=== PATIENT | female | born 1965 | race Caucasian/White ===

== ENCOUNTER → 2022-11-01 12:59 | Outpatient (BNVA) | payer OTHER, MEDICAID, SELFPAY | PROVIDERS: PCP Internal Medicine; Visit Provider Internal Medicine | DX: Z13.89 Encounter for screening for other disorder (principal) ==

== ENCOUNTER 2022-12-08 11:27 | Day surgery (SDC) | payer MEDICARE, MEDICAID, SELFPAY ==
--- NOTE | ~2022-12-08 | FL_ITS ---
EXAMINATION: XR FLUOROSCOPY WITH IMAGES CLINICAL INFORMATION: RFA medial branch block. COMPARISON: None. TECHNIQUE: Fluoroscopy Supervised By: Dr. Edward Longoria. Fluoroscopy Time: 0.4 minutes. Cumulative Dose: 11.7 mGy. DAP: 1.5 Gy-cm2. Images: 4. FINDINGS: Images demonstrate lead placement adjacent to the left L3-L4 and L5 vertebral bodies. FL/FL guidance in OR IMPRESSION: Fluoroscopy guidance for pain management procedure.
[2022-12-08 11:43] VITALS: BMI 32.5
[2022-12-08 14:06] VITALS: BP 140/91; PULSE 85; RESP 20; TEMP 37.5; O2SAT 95
--- NOTE | 2022-12-09 11:12 | MHC.SHP ---
Pre-Procedural Eval Section A Date of Service: 12/08/22 The patient is an INPATIENT: No Changes since office visit: Yes Patient answered all questions The History & Physical has been completed within 30 days and I have reviewed it.: No Section B Chief Complaint: Spondylosis without myelopathy or radiculopathy Relevant Family History (Specify if Yes): No Relevant Social History: None Present Medications: see Short Stay Collaborative assessment Medical History: No relevant PMH History of Previous Operations: No relevant previous surgery Allergies: Allergies Allergy/AdvReac Type Severity Reaction Status Date / Time No Known Allergies Allergy Verified 11/01/22 13:04 [No Known Allergies*] Review of Systems Sugical H&P ROS: Negative: Constitution, Cardiovascular and Respiratory Exam Surgical H&P Exam: Normal: HEENT, Normal: Heart and Normal: Lungs Plan Diagnosis/Plan: Unchanged I have reviewed the history and physical and performed a pertinent physical examination on my patient. No changes have occurred unless specified. Time Spent With Patient Time: Total time managing care of this patient today ____ minutes.
--- NOTE | 2022-12-09 11:13 | PM.OP ---
Brief Operative Note Date of Service: 12/08/22 Pre-op diagnosis: Lumbar spondylosis Post-op diagnosis: same Procedure: Radiofrequency ablation of the left L3, L4 medial branches and L5 dorsal ramus Surgeon: Edward Longoria MD Anesthesia: local Was an Senior Information Security Engineer used for this Procedure?: No Estimated blood loss (mL): 1 Pathology: none sent Condition: stable Disposition: same day
--- NOTE | 2022-12-09 11:14 | W.PM.OPN ---
Operative Note Operative Note Date of Service: 12/08/22 Narrative: Radiofrequency lesioning medial branch nerves, Left L3, L4 medial branches and L5 dorsal ramus (L4/5 and L5/S1) (2 levels, 3 nerves) After obtaining written consent, pre-procedure blood pressure and heart rate were stable and recorded in the nursing record. The patient was placed in the prone position. The lumbar area was prepped with chloraprep and draped in sterile fashion. The skin over the target for each medial branch nerve was anesthetized with 0.5% lidocaine. An 18 gauge radiofrequency cannula was advanced to each target site under fluoroscopic guidance. No paresthesias were elicited with needle placement and aspiration was negative for heme and CSF. Impedences were verified under 600 ohms. Sensory testing (50 Hz) and then motor testing (2 Hz) confirmed needle placement at each site within the appropriate voltage thresholds. Each site was injected with 0.5 ml 2% preservative-free lidocaine. Radiofrequency lesioning was performed for 90 seconds at 80 deg Celcius. Each site was then injected with 0.5ml 0.5% ropivacaine. The needle was removed, skin cleansed and a sterile bandage was applied. The patient tolerated the procedure well and no complications were encountered. Following the procedure the patient's vital signs were stable. The patient was discharged home in good condition with post-procedural instructions. Time Out: Immediately prior to the procedure, the following was verbally confirmed that there is a signed consent form and that the correct patient, planned procedure, site and side are consistent with documentation and that necessary equipment and/or blood products are available prior to the start of the case. Complications: none EBL: <5 cc
== END 2022-12-08 14:17 | disposition home or self-care (01) ==
PROVIDERS: PCP Internal Medicine; Visit Provider Internal Medicine
PROC: (CPT 64635; principal; 2022-12-08 12:30)
DX: M47.816 Spondylosis without myelopathy or radiculopathy, lumbar region (principal); M54.50 Low back pain, unspecified; M25.562 Pain in left knee; I10 Essential (primary) hypertension; F41.8 Other specified anxiety disorders; E11.40 Type 2 diabetes mellitus with diabetic neuropathy, unspecified; R25.1 Tremor, unspecified; Z79.4 Long term (current) use of insulin; Z79.899 Other long term (current) drug therapy
CPT/HCPCS: 64635; 64636; J2795; J3301; Q9965

== ENCOUNTER → 2022-12-22 12:08 | Day surgery (SDC) | payer MEDICARE, MEDICAID, SELFPAY ==
--- NOTE | ~2022-12-22 | FL_ITS ---
EXAMINATION: XR FLUOROSCOPY WITH IMAGES CLINICAL INFORMATION: Back pain. Pain management procedure. COMPARISON: Fluoroscopic spot images 12/08/2022. TECHNIQUE: Fluoroscopy Supervised By: Dr. Edward Longoria. Fluoroscopy Time: 0.3. Cumulative Dose: 8.52 mGy. DAP: 0.937 Gycm2. Images: 2. FINDINGS: There are spinal needles or electrodes overlying the outer right L3, L4, and L5 neural foramen. FL/FL guidance in OR IMPRESSION: Fluoroscopy for pain management procedures.
[2022-12-22 09:33] VITALS: BMI 33.3
[2022-12-22 12:24] VITALS: BP 156/79; PULSE 99; RESP 18; TEMP 36.3; O2SAT 96
[2022-12-22 14:55] VITALS: BP 120/55; PULSE 54; RESP 18; TEMP 36.2; O2SAT 96
--- NOTE | 2022-12-22 16:46 | PM.OP ---
Brief Operative Note Date of Service: 12/22/22 Pre-op diagnosis: Lumbar spondylosis Post-op diagnosis: same Procedure: Right L3, L4 medial branches and L5 dorsal ramus radiofrequency ablation Implants: None Surgeon: Edward Longoria MD Anesthesia: local Was an Industrial Machinery Mechanic used for this Procedure?: No Estimated blood loss (mL): 1 Pathology: none sent Condition: stable Disposition: same day
--- NOTE | 2022-12-23 14:26 | P.OP_ITS ---
Operative Note Operative Note Date of Service: 12/22/22 Narrative: Radiofrequency lesioning medial branch nerves, Right L3, L4 medial branches and L5 dorsal ramus (L4/5 and L5/S1) (2 levels, 3 nerves) After obtaining written consent, pre-procedure blood pressure and heart rate were stable and recorded in the nursing record. The patient was placed in the prone position. The lumbar area was prepped with chloraprep and draped in sterile fashion. The skin over the target for each medial branch nerve was anesthetized with 0.5% lidocaine. An 18 gauge radiofrequency cannula was advanced to each target site under fluoroscopic guidance. No paresthesias were elicited with needle placement and aspiration was negative for heme and CSF. Impedences were verified under 600 ohms. Sensory testing (50 Hz) and then motor testing (2 Hz) confirmed needle placement at each site within the appropriate voltage thresholds. Each site was injected with 0.5 ml 2% preservative-free lidocaine. Radiofrequency lesioning was performed for 90 seconds at 80 deg Celcius. Each site was then injected with 0.5ml 2% lidocaine. The needle was removed, skin cleansed and a sterile bandage was applied. The patient tolerated the procedure well and no complications were encountered. Following the pro cedure the patient's vital signs were stable. The patient was discharged home in good condition with post-procedural instructions. Time Out: Immediately prior to the procedure, the following was verbally confirmed that there is a signed consent form and that the correct patient, planned procedure, site and side are consistent with documentation and that necessary equipment and/or blood products are available prior to the start of the case. Complications: none EBL: <1 cc
--- NOTE | 2022-12-23 14:26 | MHC.SHP ---
Pre-Procedural Eval Section A Date of Service: 12/22/22 The patient is an INPATIENT: No The History & Physical has been completed within 30 days and I have reviewed it.: No Section B Chief Complaint: Spondylosis without myelopathy or radiculopathy, Relevant Family History (Specify if Yes): No Relevant Social History: None Present Medications: see Short Stay Collaborative assessment Medical History: No relevant PMH History of Previous Operations: No relevant previous surgery Allergies: Allergies Allergy/AdvReac Type Severity Reaction Status Date / Time No Known Allergies Allergy Verified 11/01/22 13:04 [No Known Allergies*] Review of Systems Sugical H&P ROS: Negative: Constitution, Cardiovascular and Respiratory Exam Surgical H&P Exam: Normal: HEENT, Normal: Heart and Normal: Lungs Plan Diagnosis/Plan: Unchanged I have reviewed the history and physical and performed a pertinent physical examination on my patient. No changes have occurred unless specified. Time Spent With Patient Time: Total time managing care of this patient today ____ minutes.
== END | disposition home or self-care (01) ==
PROVIDERS: PCP Internal Medicine; Visit Provider Internal Medicine
PROC: (CPT 64635; principal; 2022-12-22 13:10)
DX: M47.816 Spondylosis without myelopathy or radiculopathy, lumbar region (principal); I10 Essential (primary) hypertension; E11.9 Type 2 diabetes mellitus without complications; E78.5 Hyperlipidemia, unspecified; K21.9 Gastro-esophageal reflux disease without esophagitis; R25.1 Tremor, unspecified; G47.00 Insomnia, unspecified; Z79.4 Long term (current) use of insulin; Z79.899 Other long term (current) drug therapy; Z87.891 Personal history of nicotine dependence
CPT/HCPCS: 64635; 64636; J2795; J3301

== ENCOUNTER 2023-01-14 09:42 | Outpatient (REF) | payer MEDICARE, MEDICAID, SELFPAY ==
--- NOTE | ~2023-01-14 | XR_ITS ---
EXAMINATION: XR KNEE AP STANDING CLINICAL INFORMATION: Pain COMPARISON: None available. TECHNIQUE: AP bilateral standing view of the knees was obtained. XR/XR knee standing BI FINDINGS/IMPRESSION: No acute abnormality on this single AP view.
== END 2023-01-14 09:43 | disposition home or self-care (01) ==
LOC: HO.XRAY 09:42
PROVIDERS: PCP Internal Medicine; Visit Provider Internal Medicine
DX: M25.561 Pain in right knee (principal); M25.562 Pain in left knee
CPT/HCPCS: 73565; 99212

== ENCOUNTER 2024-05-28 09:19 | Outpatient (AMB) | payer MEDICARE, MEDICAID, SELFPAY ==
--- NOTE | 2024-05-28 09:22 | MHC.OFFVIS ---
Vital Signs 05/28/24 09:24 Height 5 ft 2 in Weight 183 lb BMI 33.5 BP 130/70 Blood Pressure Location Lt brachial Position Sitting Respiration 14 Pulse 110 H Pulse Source Pulse Oximeter Pulse Oximetry (%) 96 Oxygen Delivery Method Room Air Intake Visit Reasons: Low Back Pain Allergies No Known Allergies [No Known Allergies*] Allergy (Verified 05/28/24 09:26) Medication List - Last Reconciled 05/28/24 by May Mar LPN atorvastatin 20 mg PO DAILY celecoxib 200 mg PO BID dicyclomine 10 mg PO Q6H dulaglutide (Trulicity) mg subcut famotidine 20 mg PO BID insulin glargine (Lantus Solostar U-100 Insulin) 32 - 40 units subcut DAILY insulin lispro (Humalog KwikPen (U-100) Insulin) 2 - 10 units subcut TID omeprazole 40 mg PO DAILY prazosin 2 mg PO BEDTIME prazosin 1 mg PO BID quetiapine 25 - 50 mg PO BID PRN quetiapine 300 mg PO BEDTIME sertraline 150 mg PO DAILY terbinafine HCl 250 mg PO DAILY zolpidem 5 mg PO BEDTIME HPI HPI Low Back Pain: Details: 59-year-old female who presents today to the office for low back pain. She states that her pain was stable till May 07, 2024. She woke up with some soreness in her left side, and the next day the pain was excruciating in nature. She was seen in the ER on Tuesday and was started on steroid, oxycodone, and Tylenol 1000 mg a day. She has difficulty sleeping at night. She reports a numbing sensation with prolonged walking. She has not done an MRI scan in the past. Previous procedure elsewhere: ? She underwent successful lumbar medial branch RFAs for her low back pain in [facility] by Dr. Carlos Washington prior to moving here. She did these twice a year with great effect and long-lasting relief (>50% for >12 weeks). Past procedures: 12/24/23: Radiofrequency lesioning medial branch nerves, Right L3, L4 medial branches and L5 dorsal ramus (L4/5 and L5/S1) (2 levels, 3 nerves): More than 80% relief till April 2024. 12/09/23: Radiofrequency lesioning medial branch nerves, Left L3, L4 medial branches and L5 dorsal ramus (L4/5 and L5/S1) (2 levels, 3 nerves): More than 80% relief till April 2024. [facility] Medical History (Updated 06/01/24 @ 09:09 by Edward Longoria MD) Neuropathy of both feet Tremor GERD (gastroesophageal reflux disease) Hiatal hernia Insomnia Anxiety and depression Hyperlipidemia Hypertension Malignant neoplasm of ovary DM2 (diabetes mellitus, type 2) Surgical History (Updated 11/01/22 @ 13:15 by James Brambila) H/O bilateral salpingo-oophorectomy Social History Patient Tobacco Use Status: Former Tobacco user Review of Systems Const All systems reviewed & are unremarkable except as noted in HPI and below Physical Exam Vital Signs: Last Vital Signs Pulse 110 H 05/28/24 09:24 Resp 14 05/28/24 09:24 BP 130/70 05/28/24 09:24 Pulse Ox 96 05/28/24 09:24 Oxygen Delivery Method Room Air 05/28/24 09:24 BMI result Body Mass Index 33.5 General: Appears afebrile. Alert and oriented. Mood and affect appropriate. Follows and participates in conversation appropriately. Respiratory effort is unlabored. Able to transition from sit to stand unassisted. Ambulates with bilaterally normal heel strike and toe off. Results Reviewed Results Reviewed: No imaging is available for review. Assessment & Plan Assessment & Plan (1) Lumbar spondylosis: Code(s): M47.816 - Spondylosis without myelopathy or radiculopathy, lumbar region Category: Medical (2) Sacroiliac joint dysfunction: Code(s): M53.3 - Sacrococcygeal disorders, not elsewhere classified Category: Medical Plan Her RFA provided more than 80% relief for 15 months, but her pain at this time is more towards the left side. It is sharp in nature and aggravated by SI joint provocation. So, we will proceed with the diagnostic SI joint injection first. If that is negative, then we will consider repeating the lumbar RFA. We will schedule her for a left diagnostic sacroiliac joint injection. Discussed the risks and benefits of the procedure with the patient in detail. All questions were answered. The patient is on board with the plan. Justification for interventional therapy: ? Patient with average pain > 6/10 ? Patient has exhausted conservative therapy ? Patient unable to tolerate physical therapy due to pain. . Patient has a good understanding of their pain condition and has appropriate mental and social support Scribed for Dr. Longoria by Mike Medina, medical unit secretary, on 05/28/2024. I, Dr. Longoria, have personally reviewed and agree with the information entered by the scribe. Coding Level of Care Code Est Pt Level 3 (37761) Diagnoses Lumbar spondylosis M47.816 Sacroiliac joint dysfunction M53.3
[2024-05-28 09:24] VITALS: BP 130/70; PULSE 110; RESP 14; O2SAT 96; BMI 33.5
== END 2024-05-28 09:59 | disposition home or self-care (01) ==
LOC: HO.PMC 09:19
PROVIDERS: PCP Internal Medicine; Referring Provider Internal Medicine; Visit Provider Internal Medicine
DX: M47.816 Spondylosis without myelopathy or radiculopathy, lumbar region (principal); M53.3 Sacrococcygeal disorders, not elsewhere classified
CPT/HCPCS: 99213

== ENCOUNTER → 2024-05-28 09:19 | Outpatient (BNVA) | payer MEDICARE, MEDICAID, SELFPAY | PROVIDERS: PCP Internal Medicine; Referring Provider Internal Medicine; Visit Provider Internal Medicine | DX: M47.816 Spondylosis without myelopathy or radiculopathy, lumbar region (principal); M53.3 Sacrococcygeal disorders, not elsewhere classified | CPT/HCPCS: 99212 ==

== ENCOUNTER 2024-07-19 06:07 | Outpatient (REF) | payer MEDICARE, MEDICAID, SELFPAY | END 2024-07-19 06:08 | disposition home or self-care (01) | LOC: CF 06:07 | PROVIDERS: Visit Provider Internal Medicine | DX: M53.3 Sacrococcygeal disorders, not elsewhere classified (principal) | CPT/HCPCS: 27096; J2795 ==

== ENCOUNTER 2024-07-19 10:02 | Outpatient (AMB) | payer MEDICARE, MEDICAID, SELFPAY ==
[2024-07-19 10:29] VITALS: BP 143/81; PULSE 103; RESP 17; O2SAT 96
--- NOTE | 2024-07-19 11:23 | A.OFFVIS_ITS ---
Vital Signs 07/19/24 10:29 07/19/24 11:28 BP 143/81 H 134/81 Blood Pressure Location Lt brachial Lt brachial Position Sitting Sitting Respiration 17 17 Pulse 103 H 98 Pulse Source Pulse Oximeter Pulse Oximeter Pulse Oximetry (%) 96 95 Oxygen Delivery Method Room Air Room Air Comment Pre-op Post-op Intake Visit Reasons: Left Dx SIJ inj Allergies No Known Allergies [No Known Allergies*] Allergy (Verified 05/28/24 09:26) HPI HPI Left Dx SIJ inj: Details: Patient presents for scheduled procedure. Denies any recent cough, cold, infection, fever or other significant changes in medical history since last office visit. [facility] Medical History (Updated 06/01/24 @ 09:09 by Edward Longoria MD) Neuropathy of both feet Tremor GERD (gastroesophageal reflux disease) Hiatal hernia Insomnia Anxiety and depression Hyperlipidemia Hypertension Malignant neoplasm of ovary DM2 (diabetes mellitus, type 2) Surgical History (Updated 11/01/22 @ 13:15 by James Brambila) H/O bilateral salpingo-oophorectomy Social History Patient Tobacco Use Status: Former Tobacco user Office Procedures Joint Injection/Aspiration Joint Injection/Aspiration Details: Diagnostic Sacroiliac Joint Injection, Left The procedure, its benefits, and its risks were explained and written informed consent was obtained from the patient. Immediately prior to starting the procedure, a time-out safety check was conducted. The patient's identification, procedure name, procedure site, and procedure laterality were confirmed with the patient. ? Patient was placed prone on the fluoroscopy table and the lumbosacral area was p repped using ChloraPrep and draped with sterile drapein standard fashion. The C- arm was rotated in a contralateral oblique fashion until the medial border of the iliac crest no longer foreshadowed the posterior sacroiliac joint line. The skin and subcutaneous tissue was anesthetized using 1 mL of 0.75% plain lidocaine with 1.5-inch 25-gauge needle in the middle region of the joint line.? A 3.5-inch 22-gauge spinal needle with small bend on the tip was slowly advanced towards the joint line, coaxial to the x-ray beam. Once bony content was obtained, the needle was easily slid into the intra-articular space.? Intra- articular needle position was confirmed using lateral fluoroscopy.? A total volume of 2.5mL of solution containing 0.5% of ropivacaine was injected intra- articularly. The patient tolerated the procedure well. Patient denied any lower extremity weakness or numbness. Patient was observed for 30 min and was discharged after fulfilling the standard discharge criteria. Coding 99645 - Sacroiliac Procedure code (CPT) selection complete Assessment & Plan Assessment & Plan (1) Sacroiliac joint dysfunction: Code(s): M53.3 - Sacrococcygeal disorders, not elsewhere classified Category: Medical Plan Patient is status post left diagnostic SI joint injection. Patient tolerated procedure well and was discharged home in stable condition with discharge instructions. All questions were answered. We will follow-up via telephone or in clinic to assess response to therapy. A follow-up appointment was made during today's visit. Orders: Orders FL guidance in treatment room Today M53.3 - Sacrococcygeal disorders, not elsewhere classified Coding Level of Care Code Procedure Only Diagnoses Sacroiliac joint dysfunction M53.3 CPT Codes Coding - Joint 9: 76149 - Sacroiliac ([id number])
[2024-07-19 11:28] VITALS: BP 134/81; PULSE 98; RESP 17; O2SAT 95
== END 2024-07-19 11:28 | disposition home or self-care (01) ==
LOC: HO.PMCPRC 10:02
PROVIDERS: PCP Internal Medicine; Visit Provider Internal Medicine
DX: M53.3 Sacrococcygeal disorders, not elsewhere classified (principal)
CPT/HCPCS: 27096

== ENCOUNTER 2024-07-25 10:18 | Outpatient (AMB) | payer MEDICARE, MEDICAID, SELFPAY ==
[2024-07-25 10:32] VITALS: BP 140/76; PULSE 115; RESP 15; O2SAT 95; BMI 33.5
--- NOTE | 2024-07-25 10:32 | A.OFFVIS_ITS ---
Vital Signs 07/25/24 10:32 Height 5 ft 2 in Weight 183 lb BMI 33.5 BP 140/76 H Blood Pressure Location Lt brachial Position Sitting Respiration 15 Pulse 115 H Pulse Source Pulse Oximeter Pulse Oximetry (%) 95 Oxygen Delivery Method Room Air Intake Visit Reasons: s/p Left Dx SIJ inj Allergies No Known Allergies [No Known Allergies*] Allergy (Verified 07/25/24 10:34) Medication List - Last Reconciled 07/25/24 by May Mar LPN atorvastatin 20 mg PO DAILY celecoxib 200 mg PO BID dicyclomine 10 mg PO Q6H dulaglutide (Trulicity) mg subcut famotidine 20 mg PO BID insulin glargine (Lantus Solostar U-100 Insulin) 32 - 40 units subcut DAILY insulin lispro (Humalog KwikPen (U-100) Insulin) 2 - 10 units subcut TID omeprazole 40 mg PO DAILY prazosin 2 mg PO BEDTIME prazosin 1 mg PO BID quetiapine 25 - 50 mg PO BID PRN quetiapine 300 mg PO BEDTIME sertraline 150 mg PO DAILY terbinafine HCl 250 mg PO DAILY zolpidem 5 mg PO BEDTIME HPI HPI s/p Left Dx SIJ inj: Details: 59-year-old female who presents today to the office for status post left d iagnostic SI joint injection. The patient reports 80% relief following the procedure. She reports her left side pain has significantly improved; however, she still has pain in the right side. She denies any pain upon waking up in the morning. Past procedures: 07/05/2024: Diagnostic SI joint injection, left: 80% relief. 12/24/23: Radiofrequency lesioning medial branch nerves, Right L3, L4 medial branches and L5 dorsal ramus (L4/5 and L5/S1) (2 levels, 3 nerves): More than 80% relief till April 2024. 12/09/23: Radiofrequency lesioning medial branch nerves, Left L3, L4 medial branches and L5 dorsal ramus (L4/5 and L5/S1) (2 levels, 3 nerves): More than 80% relief till April 2024. [facility] Medical History (Updated 06/01/24 @ 09:09 by Edward Longoria MD) Neuropathy of both feet Tremor GERD (gastroesophageal reflux disease) Hiatal hernia Insomnia Anxiety and depression Hyperlipidemia Hypertension Malignant neoplasm of ovary DM2 (diabetes mellitus, type 2) Surgical History (Updated 11/01/22 @ 13:15 by James Brambila) H/O bilateral salpingo-oophorectomy Social History Patient Tobacco Use Status: Former Tobacco user Physical Exam Vital Signs: Last Vital Signs Pulse 115 H 07/25/24 10:32 Resp 15 07/25/24 10:32 BP 140/76 H 07/25/24 10:32 Pulse Ox 95 07/25/24 10:32 Oxygen Delivery Method Room Air 07/25/24 10:32 BMI result Body Mass Index 33.5 General: Appears afebrile. Alert and oriented. Mood and affect appropriate. Follows and participates in conversation appropriately. Respiratory effort is unlabored. Able to transition from sit to stand unassisted. Ambulates with bilaterally normal heel strike and toe off. SI joint compression and REJI are positive on the right. Assessment & Plan Assessment & Plan (1) Sacroiliac joint dysfunction: Code(s): M53.3 - Sacrococcygeal disorders, not elsewhere classified Category: Medical Plan Will schedule for a diagnostic right-sided SI joint injection. Discussed the risks and benefits of the procedure with the patient in detail. All questions were answered. The patient is on board with the plan. Justification for interventional therapy: ? Patient with average pain > 6/10 ? Patient has exhausted conservative therapy . Patient has a good understanding of their pain condition and has appropriate mental and social support Scribed for Dr. Longoria by Mo medical physicist, on 07/25/2024. I, Dr. Longoria, have personally reviewed and agree with the information entered by the scribe. Coding Level of Care Code Est Pt Level 3 (53167) Diagnoses Sacroiliac joint dysfunction M53.3
== END 2024-07-25 10:59 | disposition home or self-care (01) ==
PROVIDERS: PCP Internal Medicine; Visit Provider Internal Medicine
DX: M53.3 Sacrococcygeal disorders, not elsewhere classified (principal)
CPT/HCPCS: 99213

== ENCOUNTER → 2024-07-25 10:18 | Outpatient (BNVA) | payer MEDICARE, MEDICAID, SELFPAY | PROVIDERS: PCP Internal Medicine; Visit Provider Internal Medicine | DX: M53.3 Sacrococcygeal disorders, not elsewhere classified (principal); Z98.890 Other specified postprocedural states | CPT/HCPCS: 99212 ==

== ENCOUNTER 2024-08-02 06:16 | Outpatient (REF) | payer MEDICARE, MEDICAID, SELFPAY | END 2024-08-02 06:17 | disposition home or self-care (01) | LOC: CF 06:16 | PROVIDERS: Visit Provider Internal Medicine | DX: M53.3 Sacrococcygeal disorders, not elsewhere classified (principal) | CPT/HCPCS: 27096; J2003; J2795 ==

== ENCOUNTER 2024-08-02 13:04 | Outpatient (AMB) | payer MEDICARE, MEDICAID, SELFPAY ==
[2024-08-02 13:09] VITALS: BP 149/73; PULSE 96; O2SAT 97
--- NOTE | 2024-08-02 13:09 | A.OFFVIS_ITS ---
Vital Signs 08/02/24 13:09 08/02/24 13:26 BP 149/73 H 168/75 H Blood Pressure Location Rt brachial Rt brachial Position Sitting Sitting Pulse 96 102 H Pulse Source Pulse Oximeter Pulse Oximeter Pulse Oximetry (%) 97 95 Oxygen Delivery Method Room Air Room Air Intake Visit Reasons: Right Dx SIJ inj Allergies No Known Allergies [No Known Allergies*] Allergy (Verified 07/25/24 10:34) PFSH Medical History (Updated 06/01/24 @ 09:09 by Edward Longoria MD) Neuropathy of both feet Tremor GERD (gastroesophageal reflux disease) Hiatal hernia Insomnia Anxiety and depression Hyperlipidemia Hypertension Malignant neoplasm of ovary DM2 (diabetes mellitus, type 2) Surgical History (Updated 11/01/22 @ 13:15 by James Brambila) H/O bilateral salpingo-oophorectomy Social History Patient Tobacco Use Status: Former Tobacco user Physical Exam Vital Signs: Last Vital Signs Pulse 96 08/02/24 13:09 BP 149/73 H 08/02/24 13:09 Pulse Ox 97 08/02/24 13:09 Oxygen Delivery Method Room Air 08/02/24 13:09 Office Procedures Joint Injection/Aspiration Joint Injection/Aspiration Details: Diagnostic Sacroiliac Joint Injection, right The procedure, its benefits, and its risks were explained and written informed consent was obtained from the patient. Immediately prior to starting the procedure, a time-out safety check was conducted. The patient's identification, procedure name, procedure site, and procedure laterality were confirmed with the patient. ? Patient was placed prone on the fluoroscopy table and the lumbosacral area was prepped using ChloraPrep and draped with sterile drapein standard fashion. The C-arm was rotated in a contralateral oblique fashion until the medial border of the iliac crest no longer foreshadowed the posterior sacroiliac joint line. The skin and subcutaneous tissue was anesthetized using 1 mL of 0.75% plain lidocaine with 1.5-inch 25-gauge needle in the middle region of the joint line.? A 3.5-inch 22-gauge spinal needle with small bend on the tip was slowly advanced towards the joint line, coaxial to the x-ray beam. Once bony content was obtained, the needle was easily slid into the intra-articular space.? Intra- articular needle position was confirmed using lateral fluoroscopy.? A total volume of 2.5mL of solution containing 0.5% of ropivacaine was injected intra- articularly. The stylet was reinserted and needle was removed. The patient tolerated the procedure well. Patient denied any lower extremity weakness or numbness. Patient was observed for 30 min and was discharged after fulfilling the standard discharge criteria. Coding 87550 - Sacroiliac Procedure code (CPT) selection complete Assessment & Plan Assessment & Plan (1) Sacroiliac joint dysfunction: Code(s): M53.3 - Sacrococcygeal disorders, not elsewhere classified Category: Medical Plan Patient is status post right diagnostic sacroiliac joint injection. Patient tolerated procedure well and was discharged home in stable condition with discharge instructions. All questions were answered. We will follow-up via telephone or in clinic to assess response to therapy. A follow-up appointment was made during today's visit. Coding Level of Care Code Procedure Only Diagnoses Sacroiliac joint dysfunction M53.3 CPT Codes Coding - Joint 9: 10826 - Sacroiliac ([id number])
[2024-08-02 13:26] VITALS: BP 168/75; PULSE 102; O2SAT 95
== END 2024-08-02 13:24 | disposition home or self-care (01) ==
LOC: HO.PMCPRC 13:04
PROVIDERS: PCP Internal Medicine; Visit Provider Internal Medicine
DX: M53.3 Sacrococcygeal disorders, not elsewhere classified (principal)
CPT/HCPCS: 27096

== ENCOUNTER 2024-08-10 11:53 | Outpatient (AMB) | payer MEDICARE, MEDICAID, SELFPAY ==
--- NOTE | 2024-08-10 11:54 | MHC.OFFVIS ---
Intake Visit Reasons: s/p right Dx SIJ inj Allergies No Known Allergies [No Known Allergies*] Allergy (Verified 07/25/24 10:34) HPI HPI s/p right Dx SIJ inj: Details: 59-year-old female who presents today via tele-visit for status post right diagnostic sacroiliac joint injection. She reports pain relief on the left side but no relief on the right side. Her right side is worse than left side. She reports aching pain in her right side while performing her ADLs. Past procedures 08/02/24: Diagnostic Sacroiliac Joint Injection, right: No relief. 07/05/2024: Diagnostic SI joint injection, left: 80% relief. 12/24/23: Radiofrequency lesioning medial branch nerves, Right L3, L4 medial branches and L5 dorsal ramus (L4/5 and L5/S1) (2 levels, 3 nerves): More than 80% relief till April 2024. 12/09/23: Radiofrequency lesioning medial branch nerves, Left L3, L4 medial branches and L5 dorsal ramus (L4/5 and L5/S1) (2 levels, 3 nerves): More than 80% relief till April 2024. [facility] Medical History (Updated 06/01/24 @ 09:09 by Edward Longoria MD) Neuropathy of both feet Tremor GERD (gastroesophageal reflux disease) Hiatal hernia Insomnia Anxiety and depression Hyperlipidemia Hypertension Malignant neoplasm of ovary DM2 (diabetes mellitus, type 2) Surgical History (Updated 11/01/22 @ 13:15 by James Brambila) H/O bilateral salpingo-oophorectomy Social History Patient Tobacco Use Status: Former Tobacco user Review of Systems Const All systems reviewed & are unremarkable except as noted in HPI and below Telehealth Telehealth Telehealth Platform: [facility] Location of provider rendering services: practice address Location of patient: address on file Patient Identification confirmed using: Name, : Yes Telehealth method: video Patient verbally consented to treatment: Yes Patient verbally consented to billing insurance company: Yes Patient informed of any privacy concerns related to visit: Yes Minutes spent on Phone/Video with Pt.: 10 Results Reviewed Results Reviewed: No imaging is available for review. Assessment & Plan Assessment & Plan (1) Sacroiliac joint dysfunction: Code(s): M53.3 - Sacrococcygeal disorders, not elsewhere classified Category: Medical (2) Lumbar spondylosis: Code(s): M47.816 - Spondylosis without myelopathy or radiculopathy, lumbar region Category: Medical Plan The patient had a positive diagnostic response to left diagnostic sacroiliac joint injection. So, we will follow up with a left therapeutic sacroiliac joint injection. Discussed radiofrequency ablation vs. temporary peripheral nerve stimulator as possible treatment options for the right sided pain. She has axial low back pain similar to her usual facetogenic pain, which did not respond to a diagnostic SI joint injection. So instead of a therapeutic injection on that side, we will proceed with repeat right L3-L4-L5 medial radiofrequency ablation. The last radiofrequency ablation was in December of this year that provided more than six months of 80% relief. Discussed the risks and benefits of the procedure with the patient in detail. All questions were answered. The patient is on board with the plan. Justification for interventional therapy: ? Patient with average pain > 6/10 ? Patient has exhausted conservative therapy ? Patient unable to tolerate physical therapy due to pain. ? The last radiofrequency ablation was in December of this year that provided more than six months of 80% relief. A positive diagnostic response to left diagnostic sacroiliac joint injection. . Patient has a good understanding of their pain condition and has appropriate mental and social support Scribed for Dr. Longoria by Mike Medina, medical sales consultant, on 08/10/2024. I, Dr. Longoria, have personally reviewed and agree with the information entered by the scribe. Coding Level of Care Code Tele Est Pt Level 4 (39204) Diagnoses Sacroiliac joint dysfunction M53.3 Lumbar spondylosis M47.816
== END 2024-08-10 11:54 | disposition home or self-care (01) ==
LOC: HO.PMC 11:53
PROVIDERS: PCP Internal Medicine; Visit Provider Internal Medicine
DX: M53.3 Sacrococcygeal disorders, not elsewhere classified (principal); M47.816 Spondylosis without myelopathy or radiculopathy, lumbar region
CPT/HCPCS: 99214

== ENCOUNTER → 2024-08-10 11:53 | Outpatient (BNVA) | payer MEDICARE, MEDICAID, SELFPAY | PROVIDERS: PCP Internal Medicine; Visit Provider Internal Medicine ==

== ENCOUNTER 2024-08-23 06:19 | Outpatient (REF) | payer MEDICARE, MEDICAID, SELFPAY | END 2024-08-23 06:20 | disposition home or self-care (01) | LOC: CF 06:19 | PROVIDERS: Visit Provider Internal Medicine | DX: M47.816 Spondylosis without myelopathy or radiculopathy, lumbar region (principal) | CPT/HCPCS: 64635; 64636; J2003; J2795 ==

== ENCOUNTER 2024-08-23 12:38 | Outpatient (AMB) | payer MEDICARE, MEDICAID, SELFPAY ==
[2024-08-23 12:54] VITALS: BP 145/81; PULSE 95; O2SAT 95
--- NOTE | 2024-08-23 12:54 | MHC.OFFVIS ---
Vital Signs 08/23/24 12:54 08/23/24 13:42 BP 145/81 H 135/85 Blood Pressure Location Lt brachial Lt brachial Position Sitting Sitting Pulse 95 97 Pulse Source Pulse Oximeter Pulse Oximeter Pulse Oximetry (%) 95 93 Oxygen Delivery Method Room Air Room Air Intake Visit Reasons: Right L3-L4-L5 RFA/ Ativan Allergies No Known Allergies [No Known Allergies*] Allergy (Verified 07/25/24 10:34) HPI HPI Right L3-L4-L5 RFA/ Ativan: Details: Patient presents for scheduled procedure. Denies any recent cough, cold, infection, fever or other significant changes in medical history since last office visit. [facility] Medical History (Updated 06/01/24 @ 09:09 by Edward Longoria MD) Neuropathy of both feet Tremor GERD (gastroesophageal reflux disease) Hiatal hernia Insomnia Anxiety and depression Hyperlipidemia Hypertension Malignant neoplasm of ovary DM2 (diabetes mellitus, type 2) Surgical History (Updated 11/01/22 @ 13:15 by James Brambila) H/O bilateral salpingo-oophorectomy Social History Patient Tobacco Use Status: Former Tobacco user Physical Exam Vital Signs: Last Vital Signs Pulse 95 08/23/24 12:54 BP 145/81 H 08/23/24 12:54 Pulse Ox 95 08/23/24 12:54 Oxygen Delivery Method Room Air 08/23/24 12:54 Office Procedures Details: Radiofrequency lesioning medial branch nerves, right L3, L4 medial branches and L5 dorsal ramus (L4/5 and L5/S1) (2 levels, 3 nerves) After obtaining written consent, pre-procedure blood pressure and heart rate were stable and recorded in the nursing record. The patient was placed in the prone position. The lumbar area was prepped with chloraprep and draped in sterile fashion. The skin over the target for each medial branch nerve was anesthetized with 0.5% lidocaine. An 18 gauge radiofrequency cannula was advanced to each target site under fluoroscopic guidance. No paresthesias were elicited with needle placement and aspiration was negative for heme and CSF. Impedences were verified under 600 ohms. Sensory testing (50 Hz) and then motor testing (2 Hz) confirmed needle placement at each site within the appropriate voltage thresholds. Each site was injected with 0.5 ml 2% preservative-free lidocaine. Radiofrequency lesioning was performed for 90 seconds at 80 deg Celcius. Each site was then injected with 0.5ml 2% lidocaine. The needle was removed, skin cleansed and a sterile bandage was applied. The patient tolerated the procedure well and no complications were encountered. Following the procedure the patient's vital signs were stable. The patient was discharged home in good condition with post-procedural instructions. Time Out: Immediately prior to the procedure, the following was verbally confirmed that there is a signed consent form and that the correct patient, planned procedure, site and side are consistent with documentation and that necessary equipment and/or blood products are available prior to the start of the case. Complications: none EBL: <5 cc 84476 - RFA Lumbar Medial Branches 63904 - Lumbar Medial Branches ADDNL Procedure code (CPT) selection complete Office Meds lidocaine (PF) 10 mg/mL (1 %) injection solution Performing Provider: Sara Johansen APRN, CNP [place] [facility] [place] [facility] Administered by: Edward Longoria MD on 08/23/24 13:03 Dose Route Admin Location Dispensed Lot Number Expiration Date [facility] [employer] 5 mL subcut 5 mL Assessment & Plan Assessment & Plan (1) Lumbar spondylosis: Code(s): M47.816 - Spondylosis without myelopathy or radiculopathy, lumbar region Category: Medical Plan Patient is status post right L3, L4 medial branches and L5 dorsal ramus radiofrequency ablation. Patient tolerated procedure well and was discharged home in stable condition with discharge instructions. All questions were answered. We will follow-up via telephone or in clinic to assess response to therapy. A follow-up appointment was made during today's visit. Orders: Orders FL guidance in treatment room Today M47.816 - Spondylosis without myelopathy or radiculopathy, lumbar region AMB RFA Radiofrequency Ablation Pain Management Today M47.816 - Spondylosis without myelopathy or radiculopathy, lumbar region Medications: New lorazepam (Ativan) Take 30 minutes prior to arrival to procedure 1 mg PO ONCE 1 tab 0RF anxiety Coding Level of Care Code Procedure Only Diagnoses Lumbar spondylosis M47.816 CPT Codes Radiofrequency Ablation - Rad-Ablation 3: 48745 - RFA Lumbar Medial Branches ([id number]) Radiofrequency Ablation - Rad-Ablation 4: 79003 - Lumbar Medial Branches ADDNL ([id number])
[2024-08-23 13:42] VITALS: BP 135/85; PULSE 97; O2SAT 93
== END 2024-08-23 13:44 | disposition home or self-care (01) ==
LOC: HO.PMCPRC 12:38
PROVIDERS: PCP Internal Medicine; Visit Provider Internal Medicine
DX: M47.816 Spondylosis without myelopathy or radiculopathy, lumbar region (principal)
CPT/HCPCS: 64635; 64636

== ENCOUNTER 2024-08-30 06:24 | Outpatient (REF) | payer MEDICARE, MEDICAID, SELFPAY | END 2024-08-30 06:25 | disposition home or self-care (01) | LOC: CF 06:24 | PROVIDERS: Visit Provider Internal Medicine | DX: M53.3 Sacrococcygeal disorders, not elsewhere classified (principal) | CPT/HCPCS: 27096; J2003; J2795; J3300; J3301 ==

== ENCOUNTER 2024-08-30 11:20 | Outpatient (AMB) | payer MEDICARE, MEDICAID, SELFPAY ==
[2024-08-30 11:26] VITALS: BP 146/88; PULSE 103; O2SAT 95
--- NOTE | 2024-08-30 11:26 | MHC.OFFVIS ---
Vital Signs 08/30/24 11:26 08/30/24 12:03 BP 146/88 H 162/88 H Blood Pressure Location Rt brachial Rt brachial Position Sitting Sitting Pulse 103 H 98 Pulse Source Pulse Oximeter Pulse Oximeter Pulse Oximetry (%) 95 97 Oxygen Delivery Method Room Air Room Air Intake Visit Reasons: Left theraputic SIJ Allergies No Known Allergies [No Known Allergies*] Allergy (Verified 07/25/24 10:34) HPI HPI Left theraputic SIJ: Details: Patient presents for scheduled procedure. Denies any recent cough, cold, infection, fever or other significant changes in medical history since last office visit. [facility] Medical History (Updated 06/01/24 @ 09:09 by Edward Longoria MD) Neuropathy of both feet Tremor GERD (gastroesophageal reflux disease) Hiatal hernia Insomnia Anxiety and depression Hyperlipidemia Hypertension Malignant neoplasm of ovary DM2 (diabetes mellitus, type 2) Surgical History (Updated 11/01/22 @ 13:15 by James Brambila) H/O bilateral salpingo-oophorectomy Social History Patient Tobacco Use Status: Former Tobacco user Physical Exam Vital Signs: Last Vital Signs Pulse 98 08/30/24 12:03 BP 162/88 H 08/30/24 12:03 Pulse Ox 97 08/30/24 12:03 Oxygen Delivery Method Room Air 08/30/24 12:03 Office Procedures AMB Joint Injection/Aspiration Joint Injection/Aspiration Details: Sacroiliac Joint Injection, Left The procedure, its benefits, and its risks were explained and written informed consent was obtained from the patient. Immediately prior to starting the procedure, a time-out safety check was conducted. The patient's identification, procedure name, procedure site, and procedure laterality were confirmed with the patient. ? Patient was placed prone on the fluoroscopy table and the lumbosacral area was prepped using ChloraPrep and draped with sterile drape in standard fashion. The C-arm was rotated in a contralateral oblique fashion until the medial border of the iliac crest no longer foreshadowed the posterior sacroiliac joint line. The skin and subcutaneous tissue was anesthetized using 1 mL of 0.75% plain lidocaine with 1.5-inch 25-gauge needle in the middle region of the joint line.?A 3.5-inch 22-gauge spinal needle with small bend on the tip was slowly advanced towards the joint line, coaxial to the x-ray beam. Once bony content was obtained, the needle was easily slid into the intra-articular space. Intra-articular needle position was confirmed using lateral fluoroscopy.? A total volume of 2.5mL of solution containing 40 mg Kenalog and rest 0.5% of ropivacaine was injected intra-articularly. The stylet was reinserted and needle was removed. The patient tolerated the procedure well. Patient denied any lower extremity weakness or numbness. Patient was observed for 30 min and was discharged after fulfilling the standard discharge criteria. Coding 27750 - Sacroiliac Procedure code (CPT) selection complete Office Meds Kenalog 40 mg/mL suspension for injection Performing Provider: Edward Longoria MD Performing Location: [facility] [place] [facility] Administered by: Edward Longoria MD on 08/30/24 13:08 Dose Route Admin Location Dispensed Lot Number Expiration Date [facility] S[employer] 40 mg intra-articular 1 mL Assessment & Plan Assessment & Plan (1) Sacroiliac joint dysfunction: Code(s): M53.3 - Sacrococcygeal disorders, not elsewhere classified Category: Medical Plan Patient is status post right SIJ therapeutic injection. Patient tolerated procedure well and was discharged home in stable condition with discharge instructions. All questions were answered. We will follow-up via telephone or in clinic to assess response to therapy. A follow-up appointment was made during today's visit. Orders: Orders FL guidance in treatment room Today Sara Johansen APRN, [employer] SERV[employer] EMPLOYEE M53.3 - Sacrococcygeal disorders, not elsewhere classified AMB Joint Injection/Aspiration Today Edward Longoria MD M53.3 - Sacrococcygeal disorders, not elsewhere classified Medications: New Kenalog (triamcinolone acetonide) 40 mg intra-articular ONCE 1 mL 0RF NS Edward Longoria MD M53.3 - Sacrococcygeal disorders, not elsewhere classified Coding Level of Care Code Procedure Only Diagnoses Sacroiliac joint dysfunction M53.3 CPT Codes Coding - Joint 9: 40301 - Sacroiliac ([id number])
[2024-08-30 12:03] VITALS: BP 162/88; PULSE 98; O2SAT 97
== END 2024-08-30 12:03 | disposition home or self-care (01) ==
LOC: HO.PMCPRC 11:20
PROVIDERS: PCP Internal Medicine; Visit Provider Internal Medicine
DX: M53.3 Sacrococcygeal disorders, not elsewhere classified (principal)
CPT/HCPCS: 27096

== ENCOUNTER 2025-08-16 10:57 | Outpatient (AMB) | payer MEDICARE, MEDICAID, SELFPAY ==
--- NOTE | 2025-08-16 11:47 | MHC.OFFVIS ---
Vital Signs 08/16/25 11:48 Height 5 ft 2 in Weight 191 lb BMI 34.9 BP 140/76 H Blood Pressure Location Lt brachial Position Sitting Respiration 16 Pulse 97 Pulse Source Pulse Oximeter Pulse Oximetry (%) 96 Oxygen Delivery Method Room Air Intake Visit Reasons: RIGHT KNEE PAIN Radiation Safety Officer Required: No Allergies No Known Allergies (No Known Allergies*) Allergy (Verified 08/16/25 11:49) Medication List - Last Reconciled 08/16/25 by May Mar LPN atorvastatin 20 mg PO DAILY celecoxib 200 mg PO BID dicyclomine 10 mg PO Q6H famotidine 20 mg PO BID insulin glargine (Lantus Solostar U-100 Insulin) 32 - 40 units subcut DAILY insulin lispro (Humalog KwikPen (U-100) Insulin) 2 - 10 units subcut TID omeprazole 40 mg PO DAILY prazosin 2 mg PO BEDTIME prazosin 1 mg PO BID quetiapine 25 - 50 mg PO BID PRN quetiapine 300 mg PO BEDTIME terbinafine HCl 250 mg PO DAILY zolpidem 5 mg PO BEDTIME HPI HPI RIGHT KNEE PAIN: Details: History of Present Illness The patient is a 60-year-old female presenting with right knee pain. The knee pain is severe, especially when descending stairs, and is more pronounced on the right side compared to the left. The patient has moderate osteoarthritis in the knee, which is worsening, particularly on the right side. She has not pursued physical therapy and is considering a cortisone injection for relief. Additionally, the patient experiences significant low back pain, which is more severe than the knee pain. She previously had radiofrequency ablation on the right side, which was effective until pain returned two weeks ago. Pain Description - Onset: Right knee pain has been present for an unspecified duration, with increased severity when descending stairs. - Quality: Severe pain, particularly on the right side, more than the left. - Location: Right knee, with osteoarthritis noted as moderate and worsening. - Exacerbating factors: Walking downstairs, kneeling on the left knee. - Relieving factors: Considering cortisone injection for relief. Physical Exam - Musculoskeletal: Right knee received a cortisone injection with 20 mg of Kenalog and 0.25% ropivacaine, no complications noted. Results Pain Management - Affect: Pain impacts daily activities, particularly descending stairs and kneeling. - Analgesia: Considering cortisone injection for knee pain relief. - Activities of Daily Living: Pain interferes with walking downstairs and kneeling. [facility] Medical History (Updated 06/01/24 @ 09:09 by Edward Longoria MD) Neuropathy of both feet Tremor GERD (gastroesophageal reflux disease) Hiatal hernia Insomnia Anxiety and depression Hyperlipidemia Hypertension Malignant neoplasm of ovary DM2 (diabetes mellitus, type 2) Surgical History (Updated 11/01/22 @ 13:15 by James Brambila) H/O bilateral salpingo-oophorectomy Social History Patient Tobacco Use Status: Former Tobacco user Physical Exam Vital Signs: Last Vital Signs Pulse 97 08/16/25 11:48 Resp 16 08/16/25 11:48 BP 140/76 H 08/16/25 11:48 Pulse Ox 96 08/16/25 11:48 Oxygen Delivery Method Room Air 08/16/25 11:48 BMI result Body Mass Index 34.9 Office Procedures AMB Joint Injection/Aspiration Joint Injection/Aspiration Primary Site: right knee Prep: site was prepped using sterile technique Injected: 40 mg of, Kenalog, with 3 mL of (0.25% ropivacaine) and in the joint Approach Used: medial parapatellar Procedure: The patient tolerated the procedure well Coding 29072 - Large joint Procedure code (CPT) selection complete Assessment & Plan Assessment & Plan (1) Knee pain: Code(s): M25.569 - Pain in unspecified knee Category: Medical (2) Lumbar spondylosis: Code(s): M47.816 - Spondylosis without myelopathy or radiculopathy, lumbar region Category: Medical Plan Plan Patient was informed and verbally consented to the use of an ambient scribe for clinic note documentation during this visit. 1. Right Knee Pain - Cortisone injection administered for pain relief. - Physical therapy was discussed but declined by the patient. 2. Lumbar Spondylosis - Diagnostic right L3, L4, L5 medial branch blocks planned before repeating radiofrequency ablation. Discussion Notes I discussed with the patient the option of a cortisone injection for her right knee pain, which she agreed to proceed with today. We also talked about the possibility of physical therapy, but the patient declined this option. For her low back pain, I explained the plan to perform diagnostic medial branch blocks before considering another round of radiofrequency ablation. Patient Instructions - Follow up for evaluation of knee pain relief after cortisone injection. - Schedule diagnostic medial branch blocks for low back pain management. Coding Level of Care Code Est Pt Level 4 (02575) Diagnoses Knee pain M25.569 Lumbar spondylosis M47.816 CPT Codes Coding - 48726 Large joint: 43041 - Large joint ([id number])
[2025-08-16 11:48] VITALS: BP 140/76; PULSE 97; RESP 16; O2SAT 96; BMI 34.9
--- OUTSIDE RECORDS SUMMARY | 2025-08-16 12:47 | XMS_ITS | Encounter Summary ---
Author Organization [facility] Address [address] [place] [address] Care Team Providers Care Hardware Engineer Name Role Phone Mike Hassan MD Primary Care Provider [phone] Encounter Details Date Type Department Care Team ([facility] st Contact Info) Description 08/08/2025 Results Follow-Up Endocrinology - [place] [address] [place] [address] Nena Brown PA [address] [place] [address] Social History Tobacco Use Types Packs/Day Years Used Date Smoking Tobacco: Former Smokeless Tobacco: Never Housing Instability Answer Date Recorde d Are you worried that in the next 2 months you may not have stable housing? No 03/01/2025 Food Access & Nutrition Answer Date Rec orded Do you have access to a vari ety of food including fruits and vegetables? No 03/01/2025 Access to Healthcare Answer Date Record ed Within the last 3 months, ho w many times did you visit the emergency department for your medical care? 0 03/01/2025 Health Literacy Answer Date Recorded How often do you need to hav e someone help you when you read instructions, pamphlets, or other written material from your doctor or pharmacy? Never 03/01/2025 Caregiver: How often do you need to have someone help you when you read instructions, pamphlets, or other written material from your doctor or pharmacy? Not on file 03/01/2025 Financial Risk Answer Date Recorded How hard is it for you to pa y for the very basics like food, housing, medical care, and air conditioning / heating? Not very hard 03/01/2025 Transportation Answer Date Recorded Has the lack of transportati on kept you from meetings, work, or from getting things needed for daily living? No Has the lack of transportati on kept you from medical appointments or from getting medications? No 03/01/2025 Social Isolation Answer Date Recorded How often do you feel lonely or isolated from th ose around you? Often 03/01/2025 Food Risk Answer Date Recorded Within the past 12 months we worried whether our food would run out before we got money to buy more. Sometimes true 025 Within the past 12 months th e food we bought just didn't last and we didn't have money to get more. Sometimes true 03/01/2025 Dependent Care Answer Date Recorded Do you need help finding or paying for care for your loved ones. For example, early childhood director or elderly care for an older adult? No 03/01/2025 Education Answer Date Recorded Do you think completing more education or training, like finishing a GED, going to college, or learning a trade, would be helpful for you? No 03/01/2025 Employment and Income Answer Date Recor ded During the last four weeks, have you been actively looking for work? No 03/01/2025 Living Situation Answer Date Recorded What is your living situation? Unrecognized valu e 03/01/2025 Comments No Sex and Gender Information Value Date Recorded Sex Assigned at Female 10/18/2024 11:21 AM EST Legal Sex Female 8:14 AM EST Gender Identity Female 10/18/2024 11:21 AM EST Sexual Orientation Straight 10/18/2024 11 :21 AM EST documented as of this encounter Plan of Treatment Upcoming Encounters Date Type Department Care Team (Late st Contact Info) Description 11/06/2025 12:00 PM EST Office Visit Endocrinology - [place] [address] [place] [address] Nena Brown PA [address] [place] [address] 12/27/2025 1:50 PM EST Appointment Radiology Department - [address] [address] 02/25/2026 11:20 AM EDT Consult Gastroenterology - [address] [facility] [address] [place] [address] Chelsea Davila, JANNETTE [address] [facility] [address] [place] [address] documented as of this encounter Visit Diagnoses Not on filedocumented in this encounter Additional Health Concerns Assessment Noted Time PHQ-9 Depression Total Score: 15 025 11:21 AM EDT documented as of this encounter Care Teams Hardware Engineer Relationship Specialty Start Date End Date Mike Hassan MD [address] [place] [address] PCP - General Internal Medicine 07/02/22 documented as of this encounter
--- OUTSIDE RECORDS SUMMARY | 2025-08-16 12:47 | XMS_ITS | Encounter Summary ---
Author Organization [facility] Address [address] [place] [address] Care Team Providers Care Magnetic Healer Name Role Phone Mike Hassan MD Primary Care Provider [phone] Reason for Visit * Reason Onset Date Comments call returning 08/02/2025 Encounter Details Date Type Department Care Team (Late st Contact Info) Description 08/02/2025 Telephone Endocrinology - [place] [address] [place] [phone] Nena Brown PA [address] [place] [address] Social History Tobacco Use Types Packs/Day Years [...] Record ed Within the last 3 months, narinder fontanez many times did you visit the emergency [...] care for your loved ones. For example, director of early childhood education or elderly care for an older adult? [...] AM EST documented as of this encounter Progress Notes * Coco Sweet MA - 08/05/2025 5:35 PM EDT Done * Janice Fernandez - 08/02/2025 11:42 AM EDT Endocrine Call Primary endocrine provider: Nena Brown PA-C Is the endocrine provider in the office toady?: no Who is calling? The patient. If not the patient or parent/guardian please check for authorization to share/verbal release. Why is the person calling? Other question/concern: Patient states she is returning a missed call from Coco. I do not see an encounter created. She can be reached at [phone] Pt also scheduled appt with Nena on 08/06/25.. Please forward to endocrine pool (p [phone]). documented in this encounter Plan of Treatment Upcoming Encounters Date Type Department Care Team (Late st Contact Info) Description 11/06/2025 12:00 PM EST Office Visit Endocrinology - [address] [phone] Nena Brown PA [address] [place] [address] 12/27/2025 1:50 PM EST Appointment Radiology Department - [address] [phone] 02/25/2026 11:20 AM EDT Consult Gastroenterology - [address] [place] [id number] Chelsea Davila NP [address] [facility] [address] [place] [address] documented as of this encounter Visit Diagnoses Not on filedocumented in this encounter Additional Health Concerns Assessment Noted Time PHQ-9 Depression Total Score: 15 025 11:21 AM EDT documented as of this encounter Care Teams Magnetic Healer Relationship Specialty Start Date End Date Mike Hassan MD [address] [place] [address] PCP - General Internal Medicine 07/02/22 documented as of this encounter
--- OUTSIDE RECORDS SUMMARY | 2025-08-16 12:47 | XMS_ITS | Clinical Summary ---
Author Organization [facility] [address] [facility] Address [address] [place] [address] Phone Care Team Providers Care Atomic Welder Name Role Phone Mike Hassan MD Primary Care Provider Allergies No known active allergies Medications famotidine (PEPCID) 20 mg tablet TAKE 1 TABLET BY MOUTH 2 TIMES DAILY NEEDED FOR HEARTBURN. 180 tablet 3 10/08/20 24 Active pen needle, diabetic 31 gauge x 16 needle USE UP TO 4 TIMES A DAY WITH INSULIN PENS 12/26/19 24 Active flash glucose scanning reader (FreeStyle Sathya 2 [place]) misc 1 Device by Does not apply route continuous. 07/30/20 22 Active flash glucose sensor (FreeStyle Sathya 2 Sensor) kit 1 Each by Does not apply route every 14 days. 07/30/20 22 Active fluocinonide (LIDEX) 0.05 % ointment Apply topically 2 times daily. Active ketoconazole (NIZORAL) 2 % cream APPLY CREAM TO THE AFFECTED AREAS OF THE BOTTOM AND TOP OF FEET TWICE DAILY 06/20/20 24 Active prazosin (MINIPRESS) 1 mg capsule Take 1 Capsule by mouth at bedtime. Active QUEtiapine XR (SEROquel XR) 300 mg 24 hr tablet Take 300 mg by mouth at bedtime. Active QUEtiapine (SEROquel) 25 mg tablet Take 25 mg by mouth 2 times daily. Active zolpidem (AMBIEN) 5 mg tablet Take 5 mg by mouth at bedtime as needed. Active HumaLOG KwikPen Insulin 100 unit/mL injection penIndications:T ype 2 diabetes mellitus with hyperglycemia ([facility] V24, [facility] V28) INJECT INTO THE SKIN 3 TIMES A DAY BEFORE MEALS. <100: 0 UNITS, 101-150: 6 UNITS, 151-200: 8 UNITS, 201-250: 10 UNITS, 251-300:12 UNITS, 301-350: 14 UNITS, 351-400: 16 UNITS, >400: CALL ME 45 mL 1 12/17/19 25 Active prazosin (MINIPRESS) 2 mg capsule Take 1 capsule (2 mg total) by mouth at bedtime. Active escitalopram (LEXAPRO) 20 mg tablet Take 1 tablet (20 mg total) by mouth 1 (one) time each day. 03/06/20 25 Active atorvastatin (LIPITOR) 20 mg tablet Take 1 tablet (20 mg total) by mouth 1 (one) time each day. 30 each 5 03/08/20 25 2024 Active dicyclomine (BENTYL) 10 mg capsule TAKE 1 CAPSULE BY MOUTH 2 TIMES A DAY. 180 capsule 1 04/16/20 25 Active celecoxib (CeleBREX) 200 mg capsule TAKE 1 CAPSULE BY MOUTH TWICE A DAY 180 capsule 1 06/05/20 25 Active Lantus Solostar U-100 Insulin 100 unit/mL (3 mL) injection penIndications:T ype 2 diabetes mellitus with hyperglycemia, without long-term current use of insulin ([facility] V24, [facility] V28) INJECT 64 UNITS INTO THE SKIN DAILY 15 mL 5 06/28/20 25 Active Jardiance 25 mg tabletIndication s:Type 2 diabetes mellitus with hyperglycemia ([facility] V24, [facility] V28) TAKE 1 TABLET BY MOUTH EVERY DAY 30 tablet 08/01/20 25 Active tirzepatide (Mounjaro) 2.5 mg/0.5 mL injectionIndicat ions:Type 2 diabetes mellitus with hyperglycemia, without long-term current use of insulin ([facility] V24, [facility] V28) Use 2.5mg once weekly 2 mL 3 08/06/20 25 Active omeprazole (PriLOSEC) [address] capsule Take 1 capsule (40 mg total) by mouth 1 (one) time each day. Do not crush or chew. 90 capsule 08/07/20 Active omeprazole (PriLOSEC) [address] capsule TAKE 1 CAP DAILY.TAKE IN A.M. ON EMPTY STOMACH, WAIT 30 MINS AND THEN EAT TO ACTIVATE MEDICATION 07/23/20 24 2024 Discontinued(R eorder) dulaglutide (Trulicity) 0.75 mg/0.5 mL pen injector injectionIndicat ions:Type 2 diabetes mellitus with hyperglycemia, without long-term current use of insulin ([facility] V24, [facility] V28) Inject 0.5 mL (0.75 mg total) under the skin every 7 (seven) days. 2 mL 3 12/26/19 25 2024 Discontinued Jardiance 25 mg tabletIndication s:Type 2 diabetes mellitus with hyperglycemia ([facility] V24, [facility] V28) TAKE 1 TABLET BY MOUTH EVERY DAY 90 tablet 1 02/06/20 25 2024 Discontinued Active Problems Problem Noted Date Diagnosed Date LANG (obstructive sleep apnea) 08/08/2023 Anxiety and depression 07/26/2022 GERD (gastroesophageal reflux disease) Hiatal hernia 07/26/2022 Hyperlipidemia 07/26/2022 Hypertension 07/26/2022 Insomnia 07/26/2022 Malignant neoplasm of ovary ([facility] V24, [facility] V28) 07/26/2022 Neuropathy of both feet 07/26/2022 Tremor 07/26/2022 Type 2 diabetes mellitus wit h hyperglycemia, without long-term current use of insulin ([facility] V24, [facility] V28) 07/19/2019 Encounters Date Type Department Care Team Description 08/08/2025 Results Follow-Up Endocrinology [address] [phone] Nena Brown PA 08/07/2025 Telephone Gastroenterology - [place] [address] [facility] [address] [facility] [address] [place] [address] Ce Alarcon MD 08/06/2025 4:00 PM EDT Office Visit Endocrinology [address] [phone] Nena Brown PA Type 2 diabetes mellitus with hyperglycemia, without long-term current use of insulin ([facility] V24, [facility] V28) (Primary Dx); Primary hypertension; Hyperlipidemia, unspecified hyperlipidemia type 08/02/2025 Telephone Internal Medicine - [facility] [address] [place] [address] Mike Hassan MD 08/02/2025 Telephone Endocrinology [facility] [place] [address] [place] [address] Nena Brown PA 07/08/2025 Telephone Gastroenterology [facility] [address] [place] [address] [facility] [address] [place] [address] Ce Alarcon MD from Last 3 Months Immunizations Immunization Administration Dates Next Due Pneumococcal conjugate 20 va lent (Prevnar 20, PCV 20) 2mo and older 03/08/2025 Pneumococcal polysaccharide 23 valent (Pneumovax 23) 2yo and older 08/25/2022 Tdap Tetanus diptheria acell ular pertussis (Boostrix; Adacel) 7yo and older 08/25/2022 Surgical History Surgery Date Site/Laterality Comments BREAST SURGERY 2018 Right PROCEDURE: HI UNLISTED PROCEDURE BREAST; COMMENT: ca BREAST BIOPSY 2012 Left PROCEDURE: BX BREAST; PERC NEEDLE CORE W/IMAG GUID; COMMENT: neg HYSTERECTOMY 10/24/2007 - 10/23/2008 Medical History Medical History Date Comments Type 2 diabetes mellitus wit h hyperglycemia, with long-term current use of insulin ([facility] V24, [facility] V28) 07/26/2022 DX:Type 2 diabetes mellitus with hyperglycemia, with long-term current use of insulin (HCC) Malignant neoplasm of ovary ([facility] V24, [facility] V28) 07/26/2022 DX:Malignant neoplasm of ova ry (HCC) H/O bilateral salpingo-oophorectomy 07/26/2022 DX:H/O bilateral salpingo-oophorectomy Hypertension 07/26/2022 DX:Hypertension Hyperlipidemia 07/26/2022 DX:Hyperlipidemi a Anxiety and depression 07/26/2022 DX:Anxiet y and depression Insomnia 07/26/2022 DX:Insomnia Hiatal hernia 07/26/2022 DX:Hiatal hernia GERD (gastroesophageal reflux disease) DX:GERD (gastroesophageal reflux disease) Tremor 07/26/2022 DX:Tremor Neuropathy of both feet 07/26/2022 DX:Neuro torsten of both feet GERD (gastroesophageal reflux disease) DX:GERD (gastroesophageal reflux disease) Abdominal cramping DX:Abdominal cramping Hiatal hernia DX:Hiatal hernia Diverticulosis DX:Diverticulosi s History of ovarian cancer in adulthood DX:History of ovarian cancer in adulthood History of breast cancer DX:Hist ory of breast cancer Elevated liver enzymes DX:Elevat ed liver enzymes Breast cancer (CMS/HCC V24, CMS/HCC V28) 2018 DX:Breast cancer (HCC); COMM ENT: rt ca Social History Tobacco Use Types Packs/Day Years Used Date Smoking Tobacco: Former Smokeless Tobacco: Never Tobacco Cessation:Counseling Given: Not Answered Housing Instability Answer Date Recorde d Are [...] care for your loved ones. For example, child abuse worker or elderly care for an older adult? [...] Orientation Straight 10/18/2024 11 :21 AM EST Obstetrics History Para Term AB IAB SAB Ectopic Multiple Livin g Live Births 2 2 2 2 Date Outcome GA Total Labor Labor/2nd/3rd Weight Sex Type Anes PTL Angie A1 A5 Name Clin Term Term Last Filed Vital Signs Vital Sign Reading Time Taken Comments Blood Pressure 109/77 08/06/2025 3:49 PM EDT Pulse 92 08/06/2025 3:49 PM EDT Temperature 35.8 C (96.4 F) 12/25/2024 3:59 PM EST Respiratory Rate 14 08/06/2025 3:49 PM EDT Oxygen Saturation 95% 12/25/2024 3:59 PM EST Inhaled Oxygen Concentration - - Weight 85.3 kg (188 lb) 08/06/2025 3:49 PM EDT Height 157.5 cm (5' 2 ) 08/06/2025 3:49 PM EDT Body Mass Index 34.39 08/06/2025 3:49 PM EDT Plan of Treatment Upcoming Encounters Date Type Department Care Team (Late st Contact Info) Description 11/06/2025 12:00 PM EST Office Visit Endocrinology - [address] [phone] Nena Brown PA [address] [place], [place] 12/27/2025 1:50 PM EST Appointment Radiology Department - [address] [phone] 02/25/2026 11:20 AM EDT Consult Gastroenterology - [address] [facility] [address] [facility] [address] [place] [id number] Chelsea Davila, JANNETTE [address] [facility] [address] [place] [address] Health Maintenance Due Date Last Done Comments COVID-19 Vaccine (#1) 1971 Diabetes: Annual Foot Exam 1976 Hepatitis A Vaccines (1 of 2 - Risk 2-dose series) 1985 Hepatitis B Vaccines (1 of 3 - 19+ 3-dose series) 1985 RSV Immunization Adult Patients (1 - Risk 50-74 years 1-dose series) 2016 HIV Screening 10/03/2022 Medicare Annual Wellness Visit 10/03/2022 Influenza Vaccine (#1) 2025 Diabetes: Annual Urine Albumin-Creatinine Ratio (uACR) 12/25/2025 12/25/2024, 08/08/2023, 08/22/2019 Diabetes: Annual GFR (Glomerular Filtration Rate) 12/25/2025 12/25/2024, 04/17/2024, 04/17/2024, Additional history exists Hypertension/CHF/CAD Annual BMP Blood Test 12/25/2025 12/25/2024, 04/17/2024, 04/17/2024, Additional history exists Diabetes: Annual Retina Eye Exam 12/26/2025 12/26/2024, 12/29/2023 Diabetes: Blood Sugar Control Test (HGBA1C) 02/04/2026 08/06/2025, 12/25/2024, 04/17/2024, Additional history exists Social Influencers of Health Screening 03/01/2026 03/01/2025 Breast Cancer Screening 12/26/2026 12/27/19, 12/23/2023, 06/07/2023, Additional history exists Colorectal Cancer Screening: Colonoscopy 04/04/2028 04/04/2018 Cholesterol Screening (Lipid Panel) 08/06/2030 08/06/2025, 10/28/2023, 09/15/2021 DTaP,Tdap,and Td Vaccines (4 - Td or Tdap) 08/25/2032 08/25/2022, 08/17/2018, 11/20/2009 Cervical Cancer Screening: Pap Smear Discontinued 04/02/2014 Hepatitis C Screening Completed 02/07/2023 Zoster Vaccines Completed 07/07/2023, 04/27/2023 Depression Screening Completed 03/01/2025, 02/03/20 Pneumococcal Vaccine: 50+ Years Completed 03/08/2025, 08/25/2022, 11/30/2017, Additional history exists HIB Vaccines Aged Out No longer eligi ble based on patient's age to complete this topic HPV Vaccines Aged Out No longer eligi ble based on patient's age to complete this topic IPV Vaccines Aged Out No longer eligi ble based on patient's age to complete this topic MMR Vaccines Aged Out No longer eligi ble based on patient's age to complete this topic Meningococcal ACWY Vaccine Aged Out N o longer eligible based on patient's age to complete this topic Meningococcal B Vaccine Aged Out No l onger eligible based on patient's age to complete this topic RSV Immunization Patients Under 20 months Aged Out No longer eligible based on patient's age to complete this topic Varicella Vaccines Aged Out No longer eligible based on patient's age to complete this topic Procedures Procedure Name Priority Date/Time Associated Diagnosis Comments HEMOGLOBIN A1C Routine 08/06/2025 3:38 PM EDT Type 2 diabetes mellitus with hyperglycemia, without long-term current use of insulin ([facility] V24, [facility] V28) LIPID PANEL WITH REFLEX TO DIRECT LDL Routine 08/06/2025 3:38 PM EDT Type 2 diabetes mellitus with hyperglycemia, without long-term current use of insulin ([facility] V24, [facility] V28) MG MAMMO DIGITAL SCREENING W TRISTAN BILAT Routine 12/26/2024 1:23 PM EST Encounter for screening mammogram for breast cancer MICROALBUMIN CREATININE URINE RATIO Routine 12/25/2024 3:31 PM EST Type 2 diabetes mellitus with hyperglycemia, without long-term current use of insulin (CMS/HCC V24, CMS/HCC V28) COMPREHENSIVE METABOLIC PANEL Routine 12/25/2024 3:31 PM EST Type 2 diabetes mellitus with hyperglycemia, without long-term current use of insulin (CMS/HCC V24, CMS/HCC V28) DEPRESSION SCREENING Routine 02/03/2024 DIABETES EYE EXAM Routine 12/29/2023 HEPATITIS C SCREENING Routine 02/07/2023 COLONOSCOPY Routine 04/04/2018 from Last 3 Months or Most Recently Relevant to Health Maintenance Results * (ABNORMAL) Lipid panel with reflex to direct LDL (08/06/2025 3:38 PM EDT) Cholesterol 190 0 - 200 mg/dL LAB CHEMISTRY METHOD 08/06/2025 8:13 PM [facility] Triglycerides 322(H) 0 - 150 mg/dL LAB CHEMISTRY METHOD 08/06/2025 8:13 PM EDT [facility] HDL 43 >=40 mg/dL [facility] LDL Calculated 83 0 - 100 mg/dL LAB CHEMISTRY METHOD 08/06/2025 8:13 PM [facility] Comment:Estimated LDL Calcul ated using equation: Total cholesterol - HDL cholesterol - (Triglycerides/5) VLDL Cholesterol Tino 64.4 mg/dL LAB CHEMISTRY METHOD 08/06/2025 8:13 PM [facility] Non HDL Chol. (LDL+VLDL) 147(H) <145 mg/dL LAB CHEMISTRY METHOD 08/06/2025 8:13 PM EDT [facility] Chol/HDL Ratio 4.4 0.0 - 4.4 LAB CHEMISTRY METHOD 08/06/2025 8:13 PM EDT [facility] Blood Venous blood specimen / Unknown Venipuncture / Unknown 08/06/2025 3:38 PM EDT 08/06/2025 3:38 PM EDT us Nena ESCALERA LAB BLOOD ORDERABLES Final Resul t Performing Organization Address City/[facility]/ZIP Co de Phone Number [facility] [address] [place] [address], [place] [phone] * (ABNORMAL) Hemoglobin A1c (08/06/2025 3:38 PM EDT) Hemoglobin A1C 8.9(H) <6.5 % LAB CHEMISTRY METHOD 08/06/2025 10:01 PM EDT [facility] Mean Bld Glu Estim. 209 mg/dL LAB CHEMISTRY METHOD 08/06/2025 10:01 PM EDT [facility] Blood Venous blood specimen / Unknown Venipuncture / Unknown 08/06/2025 3:38 PM EDT 08/06/2025 3:38 PM EDT us Nena ESCALERA LAB BLOOD ORDERABLES Final Resul t [facility] [address] [place] [address], [place] [phone] * MG Mammo Digital Screening w Tristan bilat (12/26/2024 1:23 PM EST) Anatomical Region Laterality Modality Breast Bilateral Mammography 12/27/2024 8:24 AM EST Impressions 12/27/2024 8:59 AM EST No mammographic evidence of malignancy. BREAST DENSITY: B - There are scattered areas of fibroglandular density. BI-RADS CATEGORY: 2 - BENIGN RECOMMENDATION: Screening bilateral mammogram is recommended in 1 year. MAMMO LOCATION: [facility], [address] [place] [address], [id number], . -------- FINAL REPORT -------- Dictated By: Munira Yuan Dictated Date: 12/27/2024 08:24 ET Assigned Physician: Munira Yuan Reviewed and Electronically Signed By: Munira Yuan Signed Date: 12/27/2024 08:59 ET Workstation ID: [id number] Transcribed By: Self Edit Transcribed Date: 12/27/2024 08:27 ET Narrative 12/27/2024 8:59 AM EST EXAM: Screening Mammogram CLINICAL: 59 years old, Female, routine annual exam. History of right breast cancer status post lumpectomy in 2019 followed by radiation therapy. History of a benign left core biopsy in 2012. COMPARISON: 12/23/2023 and as far back as 09/11/2020 TECHNIQUE: Bilateral MLO and CC views were obtained digitally with 3-D mammogram (digital breast tomosynthesis). Computer-aided detection was utilized in evaluation of this exam (CAD). FINDINGS: Stable postsurgical distortion with surgical clips in the upper right breast near the 12 o'clock position with progressive dystrophic calcifications at the lumpectomy site. Biopsy clip again noted in the posterior lower inner left breast. No new suspicious mass, architectural distortion, or suspicious calcifications. Procedure Note Munira Yuan MD - 12/27/2024 EXAM: Screening Mammogram CLINICAL: 59 years old, Female, routine annual exam. History of rightbreast cancer status post lumpectomy in 2019 followed by radiationtherapy. History of a benign left core biopsy in 2012. COMPARISON: 12/23/2023 and as far back as 09/11/2020 TECHNIQUE: Bilateral MLO and CC views were obtained digitally with 3-Dmammogram (digital breast tomosynthesis). Computer-aided detection wasutilized in evaluation of this exam (CAD). FINDINGS: Stable postsurgical distortion with surgical clips in the upper rightbreast near the 12 o'clock position with progressive dystrophiccalcifications at the lumpectomy site. Biopsy clip again noted in theposterior lower inner left breast. No new suspicious mass, architecturaldistortion, or suspicious calcifications. IMPRESSION: No mammographic evidence of malignancy. BREAST DENSITY: B - There are scattered areas of fibroglandular density. BI-RADS CATEGORY: 2 - BENIGN RECOMMENDATION: Screening bilateral mammogram is recommended in 1 year. MAMMO LOCATION: [facility], [address] [place] [address], [id number], . -------- FINAL REPORT -------- Dictated By: Munira Yuan Dictated Date: 12/27/2024 08:24 ET Assigned Physician: Munira Yuan Reviewed and Electronically Signed By: Munira Yuan Signed Date: 12/27/2024 08:59 ET Workstation ID: [id number] Transcribed By: Self Edit Transcribed Date: 12/27/2024 08:27 ET us Mike Hassan MD IMG BI PROCEDURES Final Result * Microalbumin creatinine urine ratio (12/25/2024 3:31 PM EST) Creatinine, Urine 171.0 mg/dL LAB CHEMISTRY METHOD 12/25/2024 6:59 PM EST [facility] Microalb, Ur 13.6 0.0 - 29.0 mg/L LAB CHEMISTRY METHOD 12/25/2024 6:59 PM EST [facility] Microalb/Creat Ratio 8 <30 mg/g creat LAB CHEMISTRY METHOD 12/25/2024 6:59 PM EST [facility] Urine Urine specimen obtained by clean catch procedure / Unknown Non-blood Collection / Unknown 12/25/2024 3:31 PM EST 12/25/2024 3:31 PM EST us Nena ESCALERA LAB URINE ORDERABLES Final Resul t [facility] [address] [place] [address], [place] [phone] * (ABNORMAL) Comprehensive metabolic panel (12/25/2024 3:31 PM EST) Sodium 138 133 - 145 mmol/L LAB CHEMISTRY METHOD 12/25/2024 6:36 PM [facility] Potassium 4.2 3.5 - 5.5 mmol/L LAB CHEMISTRY METHOD 12/25/2024 6:36 PM [facility] Chloride 101 96 - 110 mmol/L LAB CHEMISTRY METHOD 12/25/2024 6:36 PM [facility] CO2 32 21 - 32 mmol/L LAB CHEMISTRY METHOD 12/25/2024 6:36 PM [facility] Anion Gap 5 3 - 11 LAB CHEMISTRY METHOD 12/25/2024 6:36 PM [facility] Glucose 135(H) 70 - 100 mg/dL LAB CHEMISTRY METHOD 12/25/2024 6:36 PM [facility] BUN 13 5 - 25 mg/dL LAB CHEMISTRY METHOD 12/25/2024 6:36 PM [facility] Creatinine 0.93 0.50 - 1.10 mg/dL LAB CHEMISTRY METHOD 12/25/2024 6:36 PM [facility] eGFR 71 >=60 mL/min/1. 73m2 LAB CHEMISTRY METHOD 12/25/2024 6:36 PM [facility] Comment:Calculation based on the Chronic Kidney Disease Epidemiology Collaboration (CKD-EPI) equation refit without adjustment for race. BUN/Creatinine Ratio 14.0 LAB CHEMISTRY METHOD 12/25/2024 6:36 PM [facility] Calcium 10.4 8.5 - 10.5 mg/dL LAB CHEMISTRY METHOD 12/25/2024 6:36 PM [facility] AST (SGOT) 38 10 - 42 unit/L LAB CHEMISTRY METHOD 12/25/2024 6:36 PM [facility] ALT (SGPT) 49 10 - 60 unit/L LAB CHEMISTRY METHOD 12/25/2024 6:36 PM EST [facility] Alkaline Phosphatase 137(H) 42 - 121 unit/L LAB CHEMISTRY METHOD 12/25/2024 6:36 PM [facility] Total Protein 8.1(H) 6.0 - 8.0 g/dL LAB CHEMISTRY METHOD 12/25/2024 6:36 PM EST [facility] Albumin 4.4 3.2 - 5.0 g/dL LAB CHEMISTRY METHOD 12/25/2024 6:36 PM [facility] Total Bilirubin 0.4 0.0 - 1.4 mg/dL LAB CHEMISTRY METHOD 12/25/2024 6:36 PM [facility] Blood Venous blood specimen / Unknown Venipuncture / Unknown 12/25/2024 3:31 PM EST 12/25/2024 3:31 PM EST Nena ESCALERA LAB BLOOD ORDERABLES Final Resul t [facility] [address] [place] [address], * Depression Screening (02/03/2024) [facility] Depression Screening Abstracted [facility] Provider HEALTH MAINTENANCE Final Result * Diabetes Eye Exam (12/29/2023) [facility] Diabetes: Annual Retina Eye Exam Abstracted Historical Provider HEALTH MAINTENANCE Final Result * Hepatitis C Screening (02/07/2023) [facility] Hepatitis C Screening Abstracted [facility] Provider HEALTH MAINTENANCE Final Result * Colonoscopy (04/04/2018) [facility] Colonoscopy Abstracted, no interpretation Anatomical Region Laterality Modality Other [facility] Provider HEALTH MAINTENANCE Final Result from Last 3 Months or Most Recently Relevant to Health Maintenance Insurance [employer] MEDICARE [place]ICAID - [place] [address] [id number] Care Teams Atomic Welder Relationship Specialty Start Date End Date Mike Hassan MD [address] [place] [id number] PCP - General Internal Medicine 07/02/22
== END 2025-08-16 12:31 | disposition home or self-care (01) ==
LOC: HO.PMC 10:57
PROVIDERS: PCP Internal Medicine; Visit Provider Internal Medicine
DX: M25.561 Pain in right knee (principal); M47.816 Spondylosis without myelopathy or radiculopathy, lumbar region
CPT/HCPCS: 20610; 99214

== ENCOUNTER → 2025-08-16 10:57 | Outpatient (BNVA) | payer MEDICARE, MEDICAID, SELFPAY | PROVIDERS: PCP Internal Medicine; Visit Provider Internal Medicine | DX: M25.561 Pain in right knee (principal); M47.816 Spondylosis without myelopathy or radiculopathy, lumbar region | CPT/HCPCS: 20610; 99212; J2795; J3301 ==

== ENCOUNTER 2025-09-26 06:35 | Outpatient (REF) | payer MEDICARE, MEDICAID, SELFPAY ==
--- NOTE | ~2025-09-26 | FL_ITS ---
EXAMINATION: XR FLUOROSCOPY WITH IMAGES CLINICAL INFORMATION: Spondylosis COMPARISON: None available. TECHNIQUE: Fluoroscopy time: 7 seconds DAP: 0.03 mGycm2 Images: 2 FINDINGS: Fluoroscopy during procedure. Marshall overlie the regions of foramen of 3 consecutive locations near L4, L5, S1. FL/FL guidance in treatment room IMPRESSION: Fluoroscopy during procedure. See procedure report for additional information. Electronically signed by: Jamil Styles MD 09/27/2025 08:16 AM [facility]
--- OUTSIDE RECORDS SUMMARY | 2025-09-26 06:37 | XMS_ITS | Encounter Summary ---
Author Organization [facility] Address [address] [place] [address] Care Team Providers Care Tank Carpenter Name Role Phone Mike Hassan MD Primary Care Provider [phone] Encounter Details Date Type Department Care Team (Late st Contact Info) Description 08/30/2025 Telephone Endocrinology - [place] [address] [place] [phone] Nena Brown PA [address] [place] [address] Social History Tobacco Use Types Packs/Day Years [...] care for your loved ones. For example, children's court magistrate or elderly care for an older adult? [...] as of this encounter Progress Notes * Nancy Santana RN - 09/16/2025 10:20 AM EST Called [facility] - unable to appeal as they do not have permission to speak with us I called the patient no answer, VM left * Nancy Santana RN - 09/05/2025 3:36 PM EST Received a call back from [facility] She will fax the denial letter to me today Per Jennifer, [facility] is very strict on their guidelines for CGM She did not meet the criteria for severe hypoglycemia, repeated episodes of hypoglycemia per OV that was sent Once denial arrives will consult with provider * Nancy Santana RN - 09/05/2025 1:52 PM EST Called Jennifer at listed number, no answer, VM left with direct number * LALI Main - 09/04/2025 1:07 PM EST Are you able to help with this? When you call Jennifer, continue to find out what documentation is needed? * Maria M Lennon - 09/03/2025 10:10 AM EST Jennifer from [facility] is calling regarding below please follow up, you can reach Jennifer directly [phone] * Maria M Lennon - 08/30/2025 1:46 PM EST Endocrine Call Primary endocrine provider: Nena Brown PA-C Is the endocrine provider in the office toady?: no Who is calling? Jennifer [facility]. If not the patient or parent/guardian please check for authorization to share/verbal release. Why is the person calling? Jennifer from [facility] is calling to follow up on an appeal letter and wants to know if the provider received it.She states [facility] has denied the medication because the notesdidn't meet required criteria, she also states if pt has no symptoms then appeal is not necessary documented in this encounter Plan of Treatment Upcoming Encounters Date Type Department Care Team (Late st Contact Info) Description 11/06/2025 12:00 PM EST Office Visit Endocrinology - [address] [phone] Nena Brown PA [address], [place] 12/27/2025 1:50 PM EST Appointment Radiology Department - [address] [phone] 02/25/2026 11:20 AM EDT Consult Gastroenterology - [address] [phone] Chelsea Davila, JANNETTE [address] [address] documented as of this encounter Visit Diagnoses Not on filedocumented in this encounter Additional Health Concerns Assessment Noted Time PHQ-9 Depression Total Score: 15 025 11:21 AM EDT documented as of this encounter Care Teams Tank Carpenter Relationship Specialty Start Date End Date Mike Hassan MD [facility] [place] [address] PCP - General Internal Medicine 07/02/22 documented as of this encounter
--- OUTSIDE RECORDS SUMMARY | 2025-09-26 06:37 | XMS_ITS | Encounter Summary ---
Author Organization [facility] Address [address] [place] [address] Care Team Providers Care Regional Rehabilitation Director Name Role Phone Mike Hassan MD Primary Care Provider [phone] Encounter Details Date Type Department Care Team ([facility] st Contact Info) Description 08/08/2025 Results Follow-Up Endocrinology - [place] [address] [place] [address] Nena Brown PA [address] [place] [address] Social History Tobacco Use Types Packs/Day Years [...] care for your loved ones. For example, childcare attendant or elderly care for an older adult? [...] 12:00 PM EST Office Visit Endocrinology - [place] [address] [place] [address] Nena Brown PA [address] [place] [address] 12/27/2025 1:50 PM EST Appointment Radiology Department - [address] [address] 02/25/2026 11:20 AM EDT Consult Gastroenterology - [address] [phone] Chelsea Davila, JANNETTE [address] [address] documented as of this encounter Visit Diagnoses Not on filedocumented in this encounter Additional Health Concerns Assessment Noted Time PHQ-9 Depression Total Score: 15 025 11:21 AM EDT documented as of this encounter Care Teams Regional Rehabilitation Director Relationship Specialty Start Date End Date Mike Hassan MD [address] [place] [address] PCP - General Internal Medicine 07/02/22 documented as of this encounter
--- OUTSIDE RECORDS SUMMARY | 2025-09-26 06:37 | XMS_ITS | Data Portability ---
Author Organization [place] [facility] Address [address] [place] [address] Care Team Providers Care Bakery And Deli Sales Manager Name Role Phone MONIQUE ENGLISH Primary Care Provider Assessment Encounter Date Assessment Date Assessment LastModified by Organization Details LastModified Time 10/12/2021 10/12/2021 Overview/Hist ory: Pt states she has had exposeure to COVID-19 positive son last Tuesday. States she began having nasal congestion and slight dry cough today. Exam: new pt to and to this provider Non-toxic afebrile 56 yof in NAD. Resp unlabored, lungs clear, CV:RRR. no pharyngeal erythema no tonsillar swelling/exud ates. No cervical LAD DDx considered, but not limited to: Viral URI Environmental allergies Work up/Results: HPI and PE suggest possible URI, COVID pcr test collected since the patient has had symptoms less than 3 days. Plan/Discussi on: Quarantine at least until PCR test results return. OTC meds PRN symptoms. Follow up for worsening symptoms. Time On Scene with Patient: 00:41:58 [email or web address] Not available 10/12/2021 11:49:46 Plan of Treatment Reminders Order Date Submit Date Provider Last Modified By Organization Details Last Modified Time Details Appointments None recorded. Lab unlisted lab - covid-19 (novel coronaviru s) PCR 2020 021 KELLY [facility] (Centralized Electronic Ordering - All Locations), Patient Can Go To The Location Of Their Choice, [id number] 23:06:44 Referral None recorded. Procedures None recorded. Surgeries None recorded. Imaging None recorded. Medication Orders None recorded. Patient TargetsNo targets recorded. Patient Instructions Encounter Date Encounter Id Patient Instructions Last Modified By Organization Details Last Modified Time 10/12/2021 [id number] What is coronavirus disease 2019? Coronavirus disease 2019 (COVID-19) is a respiratory illness that can spread from person to person. The virus that causes COVID-19 is a novel coronavirus that was first identified during an investigation into an outbreak in [facility]. Can I get COVID-19? Yes. COVID-19 is spreading from person to person in parts of the world. Risk of infection from the virus that causes COVID-19 is higher for people who are close contacts of someone known to have COVID-19, for example household members. Other people at higher risk for infection are those who live in or have recently been in an area with ongoing spread of COVID-19. How does COVID-19 spread? The virus that causes COVID-19 probably emerged from an animal source, but is now spreading from person to person. The virus is thought to spread mainly between people who are in close contact with one another (within about 6 feet) through respiratory droplets produced when an infected person coughs or sneezes. It also may be possible that a person can get COVID-19 by touching a surface or object that has the virus on it and then touching their own mouth, nose or possibly their eyes, but this is not thought to be the main way the virus spreads. What are the symptoms of COVID-19? Patients with COVID-19 have mild to severe respiratory illness with symptoms of: fever cough shortness of breath What are severe complications from this virus? Some patients have pneumonia in both lungs, multi-organ failure and in some cases . People can help protect themselves from respiratory illness with everyday preventative actions. Avoid close contact with people who are sick. Avoid touching your eyes, nose, and mouth with unwashed hands. Wash your hands often with soap and water for at least 20 seconds. Use an alcohol-based hand gripper installer that contains at least 60% alcohol if soap and water are not available If you are sick, to keep from spreading respiratory illness to others, you should Stay home when you are sick. Cover your cough or sneeze with a tissue, then throw the tissue in the trash. Clean and disinfect frequently touched objects and surfaces. Is there a treatment? There is no specific antiviral treatment for COVID-19. People with COVID-19 can seek medical care to help relieve symptoms. FOR MORE INFORMATION: [email or web address].GOV/[email or web address] [email or web address] Not available 10/12/2021 10:55:54 Reason for Referral None Reported. Results Created Date Observation Date Name Description Value Unit Range Abnormal Flag Note LastModifiedBy Organization Detail LastModifiedTime 10/12/2010/13/2021 COVID -19 (NOVE L CORON AVIRU S) PCR covid-19 PCR result (neg) NEGAT ROB 2018- novel Coron aviru s (2018 -nCoV ) not detec paul by RT-PC R. Note: If clini jake suspi cion for COVID -19 is high, maik nue to [facility] ain preca ution s and consi addis repea t testi ng. Resul t repor paul to the [facility]. All test resul ts must be corre lated with clini jake findi ngs. This test has been autho rized by the FDA under an Emerg ency Use Autho rizat ion (EUA) for use by autho rized labor atori es. Testi ng perfo rmed on the Yedda ic Panth er Aptim a assay utili zing trans cript ion-m ediat ed ampli ficat ion (TMA) . Not Available [facility] (Centralized Electronic Ordering - All Locations) Patient Can Go To The Location Of Their Choice, [id number] 10/13/2021 23:06:44 10/12/2010/13/2021 COVID -19 (NOVE L CORON AVIRU S) PCR covid-19 PCR specimen source NASAL Not Available [facility] (Centralized Electronic Ordering - All Locations) Patient Can Go To The Location Of Their Choice, [id number] 10/13/2021 23:06:44 Result Notes None recorded. Procedures Surgical History Date Name Laterality Status Provider Name and Address Organization Details Recorded Time hysterectomy completed Clive Ventura NP [address] [place], [address], [place] [facility] 10/12/2021 10:44:13 excision of malignant tumor of breast completed Clive Ventura NP [address] [place], [address], [place] [facility] 10/12/2021 10:44:24 Imaging Results None recorded. Procedure Notes None recorded. Medical Equipment None Reported. Allergies No known drug allergies Medications Name Sig Start Date Stop Date Status Note LastModified by Organization Details LastModified Time quetiapine 25 mg tablet TAKE 1 TO 2 TABLETS BY MOUTH TWICE A DAY NEEDED active Not Available Not Available No t Available celecoxib 200 mg capsule TAKE 1 CAPSULE BY MOUTH TWICE A DAY active Not Available Not Available No t Available bupropion HCl SR 150 mg tablet,12 hr sustained-re lease 10/12 completed Not Available Not Available Not Available gabapentin 600 mg tablet TAKE 1 TABLET BY MOUTH THREE TIMES A DAY active Not Available Not Available No t Available atorvastatin 20 mg tablet TAKE 1 TABLET BY MOUTH EVERY DAY active Not Available Not Available No t Available quetiapine 300 mg tablet TAKE 1 TABLET BY MOUTH AT BEDTIME active Not Available Not Available No t Available sertraline 100 mg tablet TAKE 1 TABLET BY MOUTH EVERY DAY active Not Available Not Available No t Available omeprazole 40 mg capsule,ashkan yed release TAKE 1 CAPSULE (40 MG TOTAL) BY MOUTH DAILY. active Not Available Not Available No t Available primidone 250 mg tablet 10/12 completed Not Available Not Available Not Available sertraline 25 mg tablet 10/12 completed Not Available Not Available Not Available zolpidem 5 mg tablet TAKE 1 TABLET BY MOUTH AT BEDTIME active Not Available Not Available No t Available fluticasone propionate 50 mcg/actuatio n nasal spray,suspen elton active Not Available Not Available Not Available metformin ER 500 mg tablet,exten ded release 24 hr TAKE 2 TABLETS BY MOUTH TWICE A DAY WITH FOOD active Not Available Not Available No t Available sertraline 50 mg tablet 10/12 completed Not Available Not Available Not Available dicyclomine 10 mg capsule TAKE 1 CAPSULE (10 MG TOTAL) BY MOUTH EVERY 6 (SIX) HOURS active Not Available Not Available No t Available fenofibrate 160 mg tablet active Not Available Not Available Not Available Trintellix 5 mg tablet 10/12 completed Not Available Not Available Not Available Trintellix 10 mg tablet 10/12 completed Not Available Not Available Not Available Vitals Date Recorded Body temperature Oxygen saturation Respiratory rate Heart rate Systolic And Diastolic Provider Name and Address Organization Details Last Updated DateTime 97.9 [degF] 97 % 18 /min 97 /min 132/84 mm[Hg] Not Available [facility] 10:45:53 Social History Question Answer Notes LastModified by Organizat Luminal Details LastModified Time Tobacco Smoking Status Former Smoker Clive Ventura NP [address], [place], [address], [place] [facility] 10/12/2021 10:45:38 Do You Have An Advance Directive? No [email or web address] Information not available 10/12/2021 What Is Your Code Status? Full Code [email or web address] Information not available 10/12/2021 How Many Years Have You Smoked Tobacco? 25 [email or web address] Information not available 10/12/2021 Sex: Unknown Functional Status Question Answer Note LastModified by Organizat ion Details LastModified Time Do you use any illicit or recreational drugs? No [email or web address] Information not available 10/12/2021 Do you or have you ever used any other forms of tobacco or nicotine? No [email or web address] Information not available 10/12/2021 What is your level of alcohol consumption? Occasional [email or web address] Information not available 10/12/2021 Mental Status None recorded. Family History Relationship Description Onset Age of this Age Resolved Age Notes LastModified by Organization Details LastModified Time Mother Atrial fibrillation [email or web address] Not available 10:46:26 Medical History Condition Response Coronary Artery Disease N COPD N Depression Y Hypothyroidism N A-fib N Cancer N Stroke N High Cholesterol Y Rheumatoid Arthritis N Kidney Disease N Parkinson's Disease N Diabetes N CHF N Dementia N Asthma N Pulmonary Embolism N Hypertension N Osteoporosis N Gynecological HistoryNo gynecological history recorded. Obstetrics History GPAL:G 0 P 0 0 0 0 Past Encounters Encounter ID Performer Location Encounter Start Date Encounter Closed Date Diagnosis/Indication Diagnosis SNOMED-CT Code Diagnosis ICD10 Code Diagnosis IMO Codes Diagnosis Note [id number] Clive Ventura NP [facility] [address] [place] [address] 10/12/2021 10:38:39 10/17/2021 19:13:20 Exposure to communicable disease 251093970 Z20.822 Dry cough 45182115 R05.9 Health Concerns Section Related Observation LastModified by Organization Detai ls LastModified Time None Recorded Concern Status LastModified by Organization Details LastModified Time None Recorded Advance Directives Directive N: Payers Insurance Date Sequence Insurance Name Policy Number Policy Juan Covered Member ID Juan Member ID Guarantor Name 10/12/2021 2 [place]: [facility] Ashley Dickinson [id number] Ashley Alok 10/11/2021 1 *SELF PAY* Ashley Dickinson [id number] Ashley Dickinson 10/19/2021 1 [facility] (MEDICARE REPLACEMENT/A DVANTAGE - HMO) [id number] Ashley Dickinson [id number] Ashley Dickinson Notes Date Note Type Note Provider Name and Address Organization Details Recorded Time 10/12/2021 text/html Pt states she was exposed to someone who tested positive for COVID-19 and she developed nasal congestion and a slight dry cough. Pt states she has not had a fever, chills, body aches, or malaise. Clive Ventura NP [address], [place], [address], [place] [facility] 10/12/2021 11:50:07 OBGyn Episode No OBEpisode recorded.
--- OUTSIDE RECORDS SUMMARY | 2025-09-26 06:37 | XMS_ITS | Clinical Summary ---
Author Organization [facility] [address] [facility] Address [address] [place] [address] Phone Care Team Providers Care Pot Firer Name Role Phone Mike Hassan MD Primary [...] flash glucose scanning reader (FreeStyle Sathya 2 [place]) misc 1 Device by Does not apply [...] Active HumaLOG KwikPen Insulin 100 unit/mL injection penIndications:Ty pe 2 diabetes mellitus with hyperglycemia ([facility] V24, [facility] V28) INJECT INTO THE SKIN 3 TIMES [...] (one) time each day. 03/06/20 25 Active dicyclomine (BENTYL) 10 mg capsule TAKE 1 CAPSULE BY MOUTH 2 TIMES A DAY. 180 capsule 1 04/16/20 25 Active celecoxib (CeleBREX) 200 mg capsule TAKE 1 CAPSULE BY MOUTH TWICE A DAY 180 capsule 1 06/05/20 25 Active Lantus Solostar U-100 Insulin 100 unit/mL (3 mL) injection penIndications:Ty pe 2 diabetes mellitus with hyperglycemia, without long-term current use of insulin ([facility] V24, [facility] V28) INJECT 64 UNITS INTO THE SKIN DAILY 15 mL 5 06/28/20 25 Active tirzepatide (Mounjaro) 2.5 mg/0.5 mL injectionIndicati ons:Type 2 diabetes mellitus with hyperglycemia, without long-term current use of insulin ([facility] V24, [facility] V28) Use 2.5mg once weekly 2 mL 3 08/06/20 25 Active omeprazole (PriLOSEC) [address] capsule Take 1 capsule (40 mg total) by mouth 1 (one) time each day. Do not crush or chew. 90 capsule 08/07/20 25 Active atorvastatin (LIPITOR) 20 mg tablet TAKE 1 TABLET BY MOUTH EVERY DAY 90 tablet 08/19/20 25 Active Jardiance 25 mg tabletIndications :Type 2 diabetes mellitus with hyperglycemia ([facility] V24, [facility] V28) TAKE 1 TABLET BY MOUTH EVERY DAY 30 tablet 11/10/20 25 Active Jardiance 25 mg tabletIndications :Type 2 diabetes mellitus with hyperglycemia ([facility] V24, [facility] V28) TAKE 1 TABLET BY MOUTH EVERY DAY 30 tablet 08/01/20 25 025 Discontinued Active Problems Problem Noted Date Diagnosed Date LANG (obstructive sleep apnea) 08/08/2023 Anxiety and depression 07/26/2022 GERD (gastroesophageal reflux disease) Hiatal hernia 07/26/2022 Hyperlipidemia 07/26/2022 Hypertension 07/26/2022 Insomnia 07/26/2022 Malignant neoplasm of ovary ([facility] V24, [facility] V28) 07/26/2022 Neuropathy of both feet 07/26/2022 Tremor 07/26/2022 Type 2 diabetes mellitus wit h hyperglycemia, without long-term current use of insulin ([facility] V24, [facility] V28) 07/19/2019 Encounters Date Type Department Care Team Description 08/30/2025 Telephone Endocrinology [address] [phone] Nena Brown PA 08/08/2025 Results Follow-Up Endocrinology [address] [phone] Nena Brown PA 08/07/2025 Telephone Gastroenterology [facility] 175 [facility] 175 [facility] [address] [place] [address] Ce Alarcon MD 08/06/2025 4:00 PM EDT Office Visit Endocrinology [address] [phone] Nena Brown PA Type 2 diabetes mellitus with hyperglycemia, without long-term current use of insulin ([facility] V24, [facility] V28) (Primary Dx); Primary hypertension; Hyperlipidemia, unspecified hyperlipidemia type 08/02/2025 Telephone Internal Medicine - [address] [phone] Mike Hassan MD 08/02/2025 Telephone Endocrinology [address] [phone] Nena Brown PA 07/08/2025 Telephone Gastroenterology - [place] 175 [facility] 175 [facility] [address] [place] [address] Ce Alarcon MD from Last 3 Months Immunizations Immunization Administration Dates Next Due Pneumococcal conjugate 20 va lent (Prevnar 20, PCV 20) 2mo and older 03/08/2025 Pneumococcal polysaccharide 23 valent (Pneumovax 23) 2yo and older 08/25/2022 Tdap Tetanus diptheria acell ular pertussis (Boostrix; Adacel) 7yo and older 08/25/2022 Surgical History Surgery Date Site/Laterality Comments BREAST SURGERY 2018 Right PROCEDURE: MT UNLISTED PROCEDURE BREAST; COMMENT: ca BREAST BIOPSY 2012 Left PROCEDURE: BX BREAST; PERC NEEDLE CORE W/IMAG GUID; COMMENT: neg HYSTERECTOMY 10/24/2007 - 10/23/2008 Medical History Medical History Date Comments Type 2 diabetes mellitus wit h hyperglycemia, with long-term current use of insulin ([facility] V24, [facility] V28) 07/26/2022 DX:Type 2 diabetes mellitus with hyperglycemia, with long-term current use of insulin (HCC) Malignant neoplasm of ovary ([facility] V24, [facility] V28) 07/26/2022 DX:Malignant neoplasm of ova ry [...] enzymes Breast cancer (CMS/HCC V24, CMS/HCC V28) 2019 DX:Breast cancer (HCC); COMM ENT: rt ca [...] care for your loved ones. For example, childbirth educator or elderly care for an older adult? [...] PM EST Office Visit Endocrinology - [address] [phone] Nena Brown PA [address] [place] [address] 12/27/2025 1:50 PM EST Appointment Radiology Department - [address] [phone] 02/25/2026 11:20 AM EDT Consult Gastroenterology - [address] [facility] [address] [place] [phone] Chelsea Davila NP 299 [facility] [address] [place] [address] Health Maintenance Due Date Last Done Comments [...] Td or Tdap) 08/25/2032 08/25/2022, 08/17/2018, 11/20/2009 Hepatitis C Screening Completed 02/07/2023 Zoster Vaccines Completed 07/07/2023, 04/27/2023 Depression Screening Completed 03/01/2025, 02/03/20 24 Pneumococcal Vaccine: 50+ Years Completed 03/08/2025, 08/25/2022, 11/30/2017, Additional history exists Cervical Cancer Screening: Pap Smear Discontinued HIB Vaccines Aged Out No longer eligi [...] hyperglycemia, without long-term current use of insulin ([facility] V24, [facility] V28) LIPID PANEL WITH REFLEX TO DIRECT LDL Routine 08/06/2025 3:38 PM EDT Type 2 diabetes mellitus with hyperglycemia, without long-term current use of insulin ([facility] V24, [facility] V28) MG MAMMO DIGITAL SCREENING W TRISTAN BILAT Routine 12/26/2024 1:23 PM EST Encounter for screening mammogram for breast cancer MICROALBUMIN CREATININE URINE RATIO Routine 12/25/2024 3:31 PM EST Type 2 diabetes mellitus with hyperglycemia, without long-term current use of insulin ([facility] V24, [facility] V28) COMPREHENSIVE METABOLIC PANEL Routine 12/25/2024 3:31 PM EST Type 2 diabetes mellitus with hyperglycemia, without long-term current use of insulin ([facility]/HCC V24, [facility]/HCC V28) DEPRESSION SCREENING Routine 02/03/2024 DIABETES EYE EXAM Routine 12/29/2023 HEPATITIS C SCREENING Routine 02/07/2023 COLONOSCOPY Routine 04/04/2018 from Last 3 Months or Most Recently Relevant to Health Maintenance Results * (ABNORMAL) Lipid panel with reflex to direct LDL (08/06/2025 3:38 PM EDT) Cholesterol 190 0 - 200 mg/dL LAB CHEMISTRY METHOD 08/06/2025 8:[address] [facility] Triglycerides 322(H) 0 - 150 mg/dL LAB CHEMISTRY METHOD 08/06/2025 8:[address] [facility] HDL 43 >=40 mg/dL LAB CHEMISTRY METHOD 08/06/2025 8:13 PM [facility] LDL Calculated 83 0 - 100 mg/dL LAB CHEMISTRY METHOD 08/06/2025 8:[address] [facility] Comment:Estimated LDL Calcul ated using equation: Total cholesterol - HDL cholesterol - (Triglycerides/5) VLDL Cholesterol Tino 64.4 mg/dL LAB CHEMISTRY METHOD 08/06/2025 8:[address] [facility] Non HDL Chol. (LDL+VLDL) 147(H) <145 mg/dL LAB CHEMISTRY METHOD 08/06/2025 8:[address] [facility] Chol/HDL Ratio 4.4 0.0 - 4.4 LAB CHEMISTRY METHOD 08/06/2025 8:13 PM [facility] Blood Venous blood specimen / Unknown Venipuncture / Unknown 08/06/2025 3:38 PM EDT 08/06/2025 3:38 PM EDT Nena ESCALERA LAB BLOOD ORDERABLES Final Resul t Performing Organization Address City/[facility]/ZIP Co de Phone Number [facility] [address] [place] [address], [place] [phone] * (ABNORMAL) Hemoglobin A1c (08/06/2025 3:38 PM EDT) Hemoglobin A1C 8.9(H) <6.5 % LAB CHEMISTRY METHOD 08/06/2025 10:[address] [facility] Mean Bld Glu Estim. 209 mg/dL LAB CHEMISTRY METHOD 08/06/2025 10:[address] [facility] Blood Venous blood specimen / Unknown Venipuncture / Unknown 08/06/2025 3:38 PM EDT 08/06/2025 3:38 PM EDT Nena ESCALERA LAB BLOOD ORDERABLES Final Resul t Performing Organization Address [facility]/ZIP Co de Phone Number [facility] [address] [place] [address], [place] [phone] * MG Mammo Digital Screening w Tristan bilat (12/26/2024 1:23 PM EST) Anatomical Region Laterality Modality Breast Bilateral Mammography 12/27/2024 8:24 AM EST Impressions 12/27/2024 8:59 AM EST No mammographic evidence of malignancy. BREAST DENSITY: B - There are scattered areas of fibroglandular density. BI-RADS CATEGORY: 2 - BENIGN RECOMMENDATION: Screening bilateral mammogram is recommended in 1 year. MAMMO LOCATION: [facility], [address] [place] [address], [id number], . -------- FINAL REPORT -------- Dictated By: Munira Yuan Dictated Date: 12/27/2024 08:24 ET Assigned Physician: Munira Yuan Reviewed and Electronically Signed By: Munira Yuan Signed Date: 12/27/2024 08:59 ET Workstation ID: [id number] Transcribed By: Self Edit Transcribed Date: 12/27/2024 [...] is recommended in 1 year. MAMMO LOCATION: [facility], [address] [place] [address], [phone], . -------- FINAL REPORT -------- Dictated By: Munira Yuan Dictated Date: 12/27/2024 08:24 ET Assigned Physician: Munira Yuan Reviewed and Electronically Signed By: Munira Yuan Signed Date: 12/27/2024 08:59 ET Workstation ID: [id number] Transcribed By: Self Edit Transcribed Date: 12/27/2024 08:27 ET us Mike Hassan MD IMG BI PROCEDURES Final Result * Microalbumin creatinine urine ratio (12/25/2024 3:31 PM EST) Creatinine, Urine 171.0 mg/dL LAB CHEMISTRY METHOD 12/25/2024 6:[address] [facility] Microalb, Ur 13.6 0.0 - 29.0 mg/L LAB CHEMISTRY METHOD 12/25/2024 6:[address] [facility] Microalb/Creat Ratio 8 <30 mg/g creat LAB CHEMISTRY METHOD 12/25/2024 6:[address] [facility] Urine Urine specimen obtained by clean catch procedure / Unknown Non-blood Collection / Unknown 12/25/2024 3:31 PM EST 12/25/2024 3:31 PM EST us Nena ESCALERA LAB URINE ORDERABLES Final Resul t [facility] [address] [place] [address], * (ABNORMAL) Comprehensive metabolic panel (12/25/2024 3:31 PM EST) Sodium 138 133 - 145 mmol/L LAB CHEMISTRY METHOD 12/25/2024 6:[address] [facility] Potassium 4.2 3.5 - 5.5 mmol/L LAB CHEMISTRY METHOD 12/25/2024 6:[address] [facility] Chloride 101 96 - 110 mmol/L LAB CHEMISTRY METHOD 12/25/2024 6:36 PM [facility] CO2 32 21 - 32 mmol/L LAB CHEMISTRY METHOD 12/25/2024 6:36 PM [facility] Anion Gap 5 3 - 11 LAB CHEMISTRY METHOD 12/25/2024 6:36 PM [facility] Glucose 135(H) 70 - 100 mg/dL LAB CHEMISTRY METHOD 12/25/2024 6:36 PM [facility] BUN 13 5 - 25 mg/dL LAB CHEMISTRY METHOD 12/25/2024 6:36 PM [facility] Creatinine 0.93 0.50 - 1.10 mg/dL LAB CHEMISTRY METHOD 12/25/2024 6:36 PM [facility] eGFR 71 >=60 mL/min/1. 73m2 LAB CHEMISTRY METHOD 12/25/2024 6:36 PM [facility] Comment:Calculation based on the Chronic Kidney Disease Epidemiology Collaboration (CKD-EPI) equation refit without adjustment for race. BUN/Creatinine Ratio 14.0 LAB CHEMISTRY METHOD 12/25/2024 6:36 PM [facility] Calcium 10.4 8.5 - 10.5 mg/dL LAB CHEMISTRY METHOD 12/25/2024 6:36 PM [facility] AST (SGOT) 38 10 - 42 unit/L LAB CHEMISTRY METHOD 12/25/2024 6:36 PM [facility] ALT (SGPT) 49 10 - 60 unit/L LAB CHEMISTRY METHOD 12/25/2024 6:36 PM [facility] Alkaline Phosphatase 137(H) 42 - 121 unit/L LAB CHEMISTRY METHOD 12/25/2024 6:36 PM [facility] Total Protein 8.1(H) 6.0 - 8.0 g/dL LAB CHEMISTRY METHOD 12/25/2024 6:36 PM [facility] Albumin 4.4 3.2 - 5.0 g/dL LAB CHEMISTRY METHOD 12/25/2024 6:[address] [facility] Total Bilirubin 0.4 0.0 - 1.4 mg/dL LAB CHEMISTRY METHOD 12/25/2024 6:[address] [facility] Blood Venous blood specimen / Unknown Venipuncture / Unknown 12/25/2024 3:31 PM EST 12/25/2024 3:31 PM EST Nena ESCALERA LAB BLOOD ORDERABLES Final Resul t [facility] [address] [place] [address], [place] [phone] * Depression Screening (02/03/2024) [facility] Depression Screening Abstracted [facility] Provider HEALTH MAINTENANCE Final Result * Diabetes Eye Exam (12/29/2023) [facility] Diabetes: Annual Retina Eye Exam Abstracted Historical Provider HEALTH MAINTENANCE Final Result * Hepatitis C Screening (02/07/2023) [facility] Hepatitis C Screening Abstracted [facility] Provider HEALTH MAINTENANCE Final Result * Colonoscopy (04/04/2018) [facility] Colonoscopy Abstracted, no interpretation Anatomical Region Laterality Modality Other [facility] Provider HEALTH MAINTENANCE Final Result from Last 3 Months or Most Recently Relevant to Health Maintenance Insurance [employer] MEDICARE [place]ICAID - [place] Care Teams Pot Firer Relationship Specialty Start Date End Date Mike Hassan MD [address] [place] [address] PCP - General Internal Medicine 07/02/22
== END 2025-09-26 06:36 | disposition home or self-care (01) ==
LOC: CF 06:35
PROVIDERS: Visit Provider Internal Medicine
DX: M47.816 Spondylosis without myelopathy or radiculopathy, lumbar region (principal)
CPT/HCPCS: 64493; 64494; J2003; J2795; Q9967

== ENCOUNTER 2025-09-26 11:37 | Outpatient (AMB) | payer MEDICARE, MEDICAID, SELFPAY ==
[2025-09-26 11:47] VITALS: BP 152/86; PULSE 102; RESP 16; O2SAT 95
--- NOTE | 2025-09-26 11:47 | A.OFFVIS_ITS ---
Vital Signs 09/26/25 11:47 09/26/25 12:09 BP 152/86 H 136/77 Blood Pressure Location Lt brachial Rt brachial Position Sitting Sitting Respiration 16 16 Pulse 102 H 94 Pulse Source Pulse Oximeter Pulse Oximeter Pulse Oximetry (%) 95 95 Oxygen Delivery Method Room Air Room Air Intake Visit Reasons: Right Dx L3-L4-L5 MBB Nuclear Monitoring Technician Required: No Allergies No Known Allergies (No Known Allergies*) Allergy (Verified 09/26/25 11:48) Medication List - Last Reconciled 09/26/25 by May Mar LPN atorvastatin 20 mg PO DAILY celecoxib 200 mg PO BID dicyclomine 10 mg PO Q6H famotidine 20 mg PO BID insulin glargine (Lantus Solostar U-100 Insulin) 32 - 40 units subcut DAILY insulin lispro (Humalog KwikPen (U-100) Insulin) 2 - 10 units subcut TID omeprazole 40 mg PO DAILY prazosin 2 mg PO BEDTIME prazosin 1 mg PO BID quetiapine 25 - 50 mg PO BID PRN quetiapine 300 mg PO BEDTIME terbinafine HCl 250 mg PO DAILY zolpidem 5 mg PO BEDTIME HPI HPI Right Dx L3-L4-L5 MBB: Details: Patient presents for scheduled procedure. Denies any recent cough, cold, infection, fever or other significant changes in medical history since last office visit. [facility] Medical History (Updated 06/01/24 @ 09:09 by Edward Longoria MD) Neuropathy of both feet Tremor GERD (gastroesophageal reflux disease) Hiatal hernia Insomnia Anxiety and depression Hyperlipidemia Hypertension Malignant neoplasm of ovary DM2 (diabetes mellitus, type 2) Surgical History (Updated 11/01/22 @ 13:15 by James Brambila) H/O bilateral salpingo-oophorectomy Social History Patient Tobacco Use Status: Former Tobacco user Physical Exam Vital Signs: Last Vital Signs Pulse 94 09/26/25 12:09 Resp 16 09/26/25 12:09 BP 136/77 09/26/25 12:09 Pulse Ox 95 09/26/25 12:09 Oxygen Delivery Method Room Air 09/26/25 12:09 Office Procedures Procedure Details: Lumbar Medial Branch Block, Right L3, L4 medial branches and L5 Dorsal Ramus (2 levels, 3 nerves) After obtaining written consent, pre-procedure blood pressure and pulse were recorded and are in the nursing record for review. The patient was placed in a prone position. The respective lumbosacral area was prepped with chloraprep and draped in sterile fashion. The skin over the target medial branch nerves was anesthetized with 0.5% lidocaine. A 22 gauge 3.5 inch needle was inserted into the target medial branch nerve under fluoroscopic guidance. No paresthesias were elicited with needle placement and aspiration was negative for blood and CSF. Next, 0.2cc of omnipaque 180 was injected to verify positioning in AP and oblique imaging. Next 0.5 ml 0.5% ropivicaine was injected (0.5cc total per level). The identical procedure was performed at the remaining levels. The skin was cleansed and a sterile bandage was applied. Following the procedure the patient's vital signs were stable. The patient tolerated the procedure well and no complications were encountered. Following the procedure the patient's vital signs were stable. The patient was discharged home in good condition with post-procedural instructions. Time Out: Immediately prior to the procedure, the following was verbally confirmed that there is a signed consent form and that the correct patient, planned procedure, site and side are consistent with documentation and that necessary equipment and/or blood products are available prior to the start of the case. Complications: none EBL: <5 cc 41989 Lumbar Facet Inj SINGLE Level- use with FL Gd order: 31447 - One Side 64006 Lumbar Facet Inj SECOND Level- use with FL Gd order: 08893 - One Side Procedure code (CPT) selection complete Assessment & Plan Assessment & Plan (1) Lumbar spondylosis: Code(s): M47.816 - Spondylosis without myelopathy or radiculopathy, lumbar region Category: Medical Plan Patient is status post right L3, L4, L5 diagnostic medial branch blocks. Patient tolerated procedure well and was discharged home in stable condition with discharge instructions. All questions were answered. We will follow-up via telephone or in clinic to assess response to therapy. A follow-up appointment was made during today's visit. Orders: Orders FL guidance in treatment room 09/26/25 M47.816 - Spondylosis without myelopathy or radiculopathy, lumbar region Coding Level of Care Code Procedure Only Diagnoses Lumbar spondylosis M47.816 CPT Codes Lumbar Facet Injection - 31093 Thoracic Facet Inj CPT: 29902 - One Side ([id number]) Lumbar Facet Injection - 07769 Thoracic Facet Inj CPT: 44322 - One Side ([id number])
[2025-09-26 12:09] VITALS: BP 136/77; PULSE 94; RESP 16; O2SAT 95
== END 2025-09-26 12:09 | disposition home or self-care (01) ==
LOC: HO.PMCPRC 11:37
PROVIDERS: PCP Internal Medicine; Visit Provider Internal Medicine
DX: M47.816 Spondylosis without myelopathy or radiculopathy, lumbar region (principal)
CPT/HCPCS: 64493; 64494

== ENCOUNTER 2025-10-02 08:56 | Outpatient (AMB) | payer MEDICARE, MEDICAID, SELFPAY ==
--- NOTE | 2025-10-02 09:10 | A.OFFVIS_ITS ---
Vital Signs 10/02/25 09:11 Height 5 ft 2 in Weight 181 lb BMI 33.1 BP 131/77 Blood Pressure Location Rt brachial Position Sitting Respiration 16 Pulse 107 H Pulse Source Pulse Oximeter Pulse Oximetry (%) 95 Oxygen Delivery Method Room Air Intake Visit Reasons: s/p Right Dx L3-L4-L5 MBB Grades 1 Through 6 Teacher Required: No Accompanied by: Self / Same As Patient Allergies No Known Allergies (No Known Allergies*) Allergy (Verified 10/02/25 09:13) HPI Comments Details: History of Present Illness The patient is a 60 year old female presenting for a follow-up visit after right diagnostic lumbar medial branch blocks. Following the procedure on , she experienced one day of symptom improvement, which is considered a positive diagnostic response. She reported being very sore the day after the procedure, likely from the injections. The patient has undergone radiofrequency ablation (RFA) three times previously, with each procedure providing over 80% pain relief for 6 months. She reports that her left side feels fine and has less pain. Pain Description - Location: Right low back. - Alleviating factors: The patient experienced one day of relief after diagnostic medial branch blocks. - Associated symptoms: Soreness from the needles was present the day after the procedure. - Context: The patient notes less pain on her left side, and that her knee still feels good. Results - The patient had a positive response to right-sided diagnostic L3-L4 and L5 medial branch blocks, with pain relief for about one day. Pain Management - Analgesia: The patient received good but temporary pain relief for one day from diagnostic blocks. - Adverse Effects: She reported being very sore from the needles the day after the procedure. [facility] Medical History (Updated 06/01/24 @ 09:09 by Edward Longoria MD) Neuropathy of both feet Tremor GERD (gastroesophageal reflux disease) Hiatal hernia Insomnia Anxiety and depression Hyperlipidemia Hypertension Malignant neoplasm of ovary DM2 (diabetes mellitus, type 2) Surgical History (Updated 11/01/22 @ 13:15 by James Brambila) H/O bilateral salpingo-oophorectomy Social History Patient Tobacco Use Status: Former Tobacco user Physical Exam Exam Exam: Physical Exam Vital Signs: Last Vital Signs Pulse 107 H 10/02/25 09:11 Resp 16 10/02/25 09:11 BP 131/77 10/02/25 09:11 Pulse Ox 95 10/02/25 09:11 Oxygen Delivery Method Room Air 10/02/25 09:11 BMI result Body Mass Index 33.1 Assessment & Plan Assessment & Plan (1) Lumbar spondylosis: Code(s): M47.816 - Spondylosis without myelopathy or radiculopathy, lumbar region Category: Medical Plan Patient was informed and verbally consented to the use of an ambient scribe for clinic note documentation during this visit. 1. Spondylosis without myelopathy or radiculopathy, lumbar region M47.816 - The patient had a positive diagnostic response to right-sided L2-L4 and L5- S1/2 medial branch blocks. - She has a history of responding well to radiofrequency ablation (RFA), with t hree prior procedures providing more than 80% relief for 6 months each time. - The plan is to proceed with a repeat right-sided RFA of the L3, L4, and L5 dorsal rami. - The office will arrange the appointment and contact the patient. Discussion Notes I reviewed the results of the patient's recent right diagnostic lumbar medial branch blocks. I explained that experiencing relief for about a day constitutes a positive test, which confirms she is a candidate for radiofrequency ablation (RFA). Given her history of three prior successful RFAs, we will proceed with scheduling a repeat procedure for the right L3, L4, and L5 dorsal rami. The patient agreed to this plan, and we will contact her to schedule the appointment. Patient Instructions - My office will call you to schedule an appointment for a repeat radiofrequency ablation (RFA) procedure for your right low back. Coding Level of Care Code Est Pt Level 3 (10342) Diagnoses Lumbar spondylosis M47.816
[2025-10-02 09:11] VITALS: BP 131/77; PULSE 107; RESP 16; O2SAT 95; BMI 33.1
== END 2025-10-02 09:31 | disposition home or self-care (01) ==
LOC: HO.PMC 08:57
PROVIDERS: PCP Internal Medicine; Visit Provider Internal Medicine
DX: M47.816 Spondylosis without myelopathy or radiculopathy, lumbar region (principal)
CPT/HCPCS: 99213

== ENCOUNTER → 2025-10-02 08:56 | Outpatient (BNVA) | payer MEDICARE, MEDICAID, SELFPAY | PROVIDERS: PCP Internal Medicine; Visit Provider Internal Medicine | DX: M47.816 Spondylosis without myelopathy or radiculopathy, lumbar region (principal) | CPT/HCPCS: 99212 ==